=== PATIENT | female | born 1940 | race Caucasian/White ===

== ENCOUNTER → 2017-02-24 | Outpatient (CLI) | payer OTHER, BC ==
[~2017-02-24] MED LIST: ACET1TAB84 PO; ASPEC81 PO; CALCTAB65 PO; CEFD300C2 PO; CHOL1000 PO; CLON0.5T3 PO; COEN100C7 PO; COEN10CA4 PO; CPR500 PO; DIPH25CA5 PO; DOCU100C PO; FRRG PO; HYDR-4330 PO; HYDR-5688 PO; MELA1CAP9 PO; MRLP17 PO; MULT-513 PO; MULT-890 PO; ONDA4TAB65 PO; ONDA8TAB6 PO; OXYSR10 PO; PANT40TA2 PO; PARO30TA3 PO; PRVC/40 PO; RIZA10TA18 PO; ULT50X PO; VERA180T PO; VITAMIN B2 PO; VTMD PO; [UNRECOGNIZED DRUG - OTHER] PO
--- NOTE | 2017-02-24 17:47 | DIAGNOSTIC IMAGING REPORT ---
L-SPINE MIN 4 VIEWS ROUTINE CLINICAL HISTORY: Lumbar spine pain COMPARISON STUDY: No previous studies for comparison. FINDINGS: There are postsurgical changes of a total right hip arthroplasty. The acetabular screw protrudes into the pelvic soft tissues. There is moderate fecal retention. There are surgical clips the right upper quadrant consistent with a prior cholecystectomy. There is a minimal grade 1 spondylolisthesis of L4 and L5. There is a mild to moderate superior endplate L1 compression deformity which appears subacute. IMPRESSION: 1. Superior endplate L1 compression fracture which appears subacute. 2. No acute fractures or traumatic subluxations identified 3. Minimal grade 1 spondylolisthesis of L4 on L5 4. Fecal retention Electronically signed by: Ahmet Jones M.D. 02/24/2017 5:46 PM Dictated Date/Time: 02/24/2017 5:44 PM
--- NOTE | 2017-02-24 17:49 | DIAGNOSTIC IMAGING REPORT ---
THORACIC SPINE 3 VIEWS ROUTINE CLINICAL HISTORY: THORACIC BACK PAIN COMPARISON STUDY: No previous studies for comparison. FINDINGS: There is a mild spinal curvature convex to the left. No acute fractures or subluxations are visualized. There is a superior endplate L1 compression deformity which appears subacute. The paraspinal line is not significantly displaced IMPRESSION: Subacute superior endplate L1 compression fracture. Electronically signed by: Ahmet Jones M.D. 02/24/2017 5:47 PM Dictated Date/Time: 02/24/2017 5:47 PM
== END | disposition home or self-care (01) ==
LOC: C.RAD 16:55
PROVIDERS: ATTEND Nurse Practitioner
DX: M54.6 Pain in thoracic spine (principal); S32.010A Wedge compression fracture of first lumbar vertebra, initial encounter for closed fracture; X58.XXXA Exposure to other specified factors, initial encounter; M43.16 Spondylolisthesis, lumbar region; K59.00 Constipation, unspecified

== ENCOUNTER 2017-02-28 22:06 | Emergency (ER) | payer OTHER, BC ==
[~2017-02-28] VITALS: Ht 162.6 cm; Wt 77.9 kg
[~2017-02-28 22:06] MED LIST changes: -ASPEC81 PO; -CEFD300C2 PO; -COEN100C7 PO; -CPR500 PO; -FRRG PO; -HYDR-4330 PO; -HYDR-5688 PO; -MRLP17 PO; -MULT-890 PO; -ONDA4TAB65 PO; -ONDA8TAB6 PO; -OXYSR10 PO; -ULT50X PO; -VTMD PO
[2017-02-28 22:10] VITALS: TEMP 36.4; Ht 162.6 cm; Wt 77.9 kg
[2017-02-28] MEDS ORDERED: ONDANSETRON INJ 2 MG/ML 2 ML VIAL IV STA (22:39)
[2017-02-28] MEDS ORDERED: SODIUM CHLORIDE 0.9% 1000ML 1,000 ML IV STA (22:39)
[2017-02-28] MEDS ORDERED: SODIUM CHLORIDE 0.9% 1000ML 500 ML IV STA (22:39)
[2017-02-28] MEDS ORDERED: MoRPHine SULFATE 4 MG/ML 1 ML CARP\\VIAL IV PRN (22:45)
--- NOTE | 2017-02-28 22:47 | EMERGENCY ROOM VISIT NOTE ---
History Report prepared by Karthikeyan: Dontrell Manning Under the Supervision of: Dr. Augusto Cohen M.D. First contact with patient: 22:32 Chief Complaint: CONSTIPATION Stated Complaint: CONSTIPATION STOMACH ACHE History of Present Illness The patient is a 76 year old female who presents to the Emergency Room with complaints of persistent constipation beginning one week prior to arrival. She currently rates her discomfort as an 8/10 in severity. The patient associates nausea, abdominal bloating, abdominal pain for three days, intermittent shortness of breath, and diaphoresis with today's symptoms. She states she has a compression fracture in her back and she was taking Oxycodone. The patient notes her last dose of pain medication was two days ago. She states she tried suppositories, two laxatives, and stool softeners without relief. The patient denies a fever, vomiting, wearing oxygen at home, a history of lung disease, and a history of a heart attack. She notes she has experienced constipation in the past but not for this long. The patient states she has been urinating normally. Source of History: patient Onset: one week ELIGIBILITY SPECIALIST Position: other (global) Symptom Intensity: 8/10 Quality: other (constipation) Timing: other (persistent) Associated Symptoms: + SOB (resolved), + abdominal pain, + diaphoresis, + nausea, No fevers, No vomiting Note: Associated symptoms: abdominal bloating Review of Systems See HPI for pertinent positives & negatives. A total of 10 systems reviewed and were otherwise negative. Past Medical & Surgical Medical Problems: (1) Diverticulosis (2) Diverticulosis Colon (W/O Ment Of Hemorrhage) (3) Hypercholesteremia (4) Migraine Unspecified W/O Intract Mgrn W/O Status Migrainosus (5) Osteoporosis (6) Osteoporosis Nos (7) UTI (urinary tract infection) Surgical Problems: (1) History of femur fracture (2) S/P hysterectomy Family History Cancer Social History Smoking Status: Never Smoker Marital Status: Housing Status: lives with significant other Occupation Status: retired Current/Historical Medications Scheduled Calcium Carbonate-Vitamin D (Calcium 500 + D), 1 TAB PO BID Cefdinir (Omnicef), 300 MG PO Q12H Cholecalciferol (Vitamin D3), 1 TAB PO QAM Coenzyme Q10 (Ubidecarenone) (Coq10), Unknown Dose PO DAILY Diphenhydramine Hcl (Benadryl), 50 MG PO HS Melatonin (Melatonin), 10 MG PO HS Multivitamins/Minerals (Mvi With Minerals), 1 TAB PO QAM Pantoprazole (Pantoprazole Sodium), 40 MG PO QAM Paroxetine HCl (Paroxetine), 2 TAB PO Q2D Paroxetine HCl (Paroxetine), 1.5 TAB PO Q2D Pravastatin Sod (Pravastatin Sodium), 40 MG PO HS Rizatriptan Benzoate (Maxalt), 10 MG PO PRN Verapamil Hcl (Calan Sr Ext Rel), 180 MG PO QAM [Restless Leg Herb], 1 TAB PO HS [Vitamin B2], 100 MG PO QAM Scheduled PRN Acetaminophen (Tylenol Arthritis Ext Rel), 650 MG PO Q8H PRN for Pain Clonazepam (Klonopin), 0.5 MG PO DAILY PRN for Anxiety Docusate Sodium (Stool Softener), 100 MG PO DAILY PRN for CONSTIPATION Allergies Coded Allergies: No Known Allergies (Unverified , 03/01/17) Physical Exam Vital Signs Date Time Temp Pulse Resp B/P Pulse Ox O2 Delivery O2 Flow Rate FiO2 03/01/17 01:42 94 18 145/68 94 Room Air 03/01/17 00:41 99 18 162/75 95 Room Air 02/28/17 23:51 96 21 138/77 95 Room Air 02/28/17 22:10 36.4 144 20 146/92 96 Room Air Physical Exam GENERAL: Patient is in no acute distress. HEENT: No acute trauma, normocephalic atraumatic, mucous membranes moist, no nasal congestion, no scleral icterus. NECK: No stridor, no adenopathy, no meningismus, trachea is midline. LUNGS: Increased respiratory rate. Clear to auscultation bilaterally, no wheeze , no rhonchi, breath sounds equal. HEART: Tachycardic with a regular rhythm, no murmurs. ABDOMEN: Diffusely mildly tender, some distension noted. Soft, bowel sounds positive, no hernias, no peritonitis. EXTREMITIES: No cyanosis or edema, full range of motion of all the joints without pain or difficulty, no signs for acute trauma. NEUROLOGIC: Oriented x 3, no acute motor or sensory deficits, no focal weakness. SKIN: Mildly sweaty. No rash, no jaundice. Rectal: Brown stool, no significant constipation. Medical Decision & Procedures ER Provider Diagnostic Interpretation: X ray results and stated below per my interpretation and radiologist interpretation. Other radiology results and stated below per my review and radiologist interpretation: SINGLE VIEW CHEST CLINICAL HISTORY: Generalized abdominal pain. FINDINGS: An AP, portable, semierect chest radiograph is compared to study dated 09/15/2016. The examination is degraded by portable technique, apical lordotic positioning, and patient rotation. The heart is mildly enlarged and there is atherosclerotic calcification of the thoracic aorta. The pulmonary vasculature is noncongested. Chronic interstitial thickening is similar to previous. No airspace consolidation, large pleural effusion, or pneumothorax is seen. The skeletal structures are osteopenic. The bony thorax is grossly intact. Cholecystectomy clips are seen in the right upper quadrant. IMPRESSION: Mild cardiac enlargement with no acute cardiopulmonary abnormality. Electronically signed by: Augusto Wasserman M.D. 02/28/2017 11:[address] ABDOMEN & PELVIS: Moderate stool throughout the colon with air-fluid levels in the ascending and transverse colon. Findings may indicate stasis/constipation or diarrheal state. Correlate clinically. No bowel obstruction, significant bowel wall thickening or free air. No evidence of acute diverticulitis, as clinically queried. L1 superior endplate compression fracture of indeterminate age with retropulsion measuring approximately 4-5 mm. Correlate clinically. Cholecystectomy. Normal appendix. Small hiatal hernia. Radiologist: Crystal Ramos MD Study ready at 00:41 and initial results transmitted at 01:08. Laboratory Results 02/28/17 23:00 Red Blood Count 4.46, Mean Corpuscular Volume 92.2, Mean Corpuscular Hemoglobin 32.1, Mean Corpuscular Hemoglobin Concent 34.8, Mean Platelet Volume 10.6, Neutrophils (%) (Auto) 69.2, Lymphocytes (%) (Auto) 22.0, Monocytes (%) (Auto) 7.8, Eosinophils (%) (Auto) 0.5, Basophils (%) (Auto) 0.2, Neutrophils # (Auto) 8.57, Lymphocytes # (Auto) 2.72, Monocytes # (Auto) 0.96, Eosinophils # (Auto) 0.06, Basophils # (Auto) 0.02 02/28/17 23:00 Test 02/28/17 23:00 02/28/17 23:50 White Blood Count 12.37 K/uL (4.8-10.8) Red Blood Count 4.46 M/uL (4.2-5.4) Hemoglobin 14.3 g/dL (12.0-16.0) Hematocrit 41.1 % (37-47) Mean Corpuscular Volume 92.2 fL (80-100) Mean Corpuscular Hemoglobin 32.1 pg (25-34) Mean Corpuscular Hemoglobin Concent 34.8 g/dl (32-36) Platelet Count 302 K/uL (130-400) Mean Platelet Volume 10.6 fL (7.4-10.4) Neutrophils (%) (Auto) 69.2 % Lymphocytes (%) (Auto) 22.0 % Monocytes (%) (Auto) 7.8 % Eosinophils (%) (Auto) 0.5 % Basophils (%) (Auto) 0.2 % Neutrophils # (Auto) 8.57 K/uL (1.4-6.5) Lymphocytes # (Auto) 2.72 K/uL (1.2-3.4) Monocytes # (Auto) 0.96 K/uL (0.11-0.59) Eosinophils # (Auto) 0.06 K/uL (0-0.5) Basophils # (Auto) 0.02 K/uL (0-0.2) RDW Standard Deviation 48.7 fL (36.4-46.3) RDW Coefficient of Variation 14.4 % (11.5-14.5) Immature Granulocyte % (Auto) 0.3 % Immature Granulocyte # (Auto) 0.04 K/uL (0.00-0.02) Prothrombin Time 10.8 SECONDS (9.0-12.0) Prothromb Time International Ratio 1.0 (0.9-1.1) Activated Partial Thromboplast Time 24.4 SECONDS (21.0-31.0) Partial Thromboplastin Ratio 0.9 Anion Gap 16.0 mmol/L (3-11) Est Creatinine Clear Calc Drug Dose 48.3 ml/min Estimated GFR () 64.8 Estimated GFR (Non- 55.9 BUN/Creatinine Ratio 23.0 (10-20) Calcium Level 10.0 mg/dl (8.5-10.1) Total Bilirubin 0.8 mg/dl (0.2-1) Aspartate Amino Transf (AST/SGOT) 81 U/L (15-37) Alanine Aminotransferase (ALT/SGPT) 208 U/L (12-78) Alkaline Phosphatase 162 U/L (45-117) Troponin I < 0.015 ng/ml (0-0.045) Total Protein 8.2 gm/dl (6.4-8.2) Albumin 4.0 gm/dl (3.4-5.0) Globulin 4.2 gm/dl (2.5-4.0) Albumin/Globulin Ratio 1.0 (0.9-2) Lipase 698 U/L (73-393) Urine Color DK YELLOW Urine Appearance TURBID (CLEAR) Urine pH 6.5 (4.5-7.5) Urine Specific [place] 1.027 (1.000-1.030) Urine Protein 1+ (NEG) Urine Glucose (UA) NEG (NEG) Urine Ketones 3+ (NEG) Urine Occult Blood TRACE (NEG) Urine Nitrite POS (NEG) Urine Bilirubin NEG (NEG) Urine Urobilinogen NEG (NEG) Urine Leukocyte Esterase LARGE (NEG) Urine WBC (Auto) >30 /hpf (0-5) Urine RBC (Auto) 5-10 /hpf (0-4) Urine Hyaline Casts (Auto) 1-5 /lpf (0-5) Urine Epithelial Cells (Auto) 10-20 /lpf (0-5) Urine Bacteria (Auto) 4+ (NEG) Laboratory results reviewed by me. Medications Administered Medications (Trade) Dose Ordered Sig/Paul Route Start Time Stop Time Status Last Admin Dose Admin Sodium Chloride (Nss 1000ml) 500 ml @ 999 mls/hr Q31M STAT IV 02/28/17 22:39 02/28/17 23:09 DC 02/28/17 22:39 999 MLS/HR Ondansetron HCl (Zofran Inj) 4 mg NOW STAT IV 02/28/17 22:39 02/28/17 22:43 DC 02/28/17 23:10 4 MG Morphine Sulfate 4 mg 4 mg Q30M PRN IV 02/28/17 22:45 03/14/17 22:44 02/28/17 23:10 4 MG Sodium Chloride (Nss 1000ml) 1,000 ml @ 125 mls/hr Q8H STAT IV 02/28/17 22:39 03/01/17 06:38 02/28/17 22:39 125 MLS/HR Ceftriaxone Sodium (Rocephin Inj) 1 gm NOW STAT IV 03/01/17 00:02 03/01/17 00:03 DC 03/01/17 00:50 1 GM ECG Indication: tachycardia Rate (beats per minute): 108 Rhythm: sinus tachycardia Findings: no acute ischemic change, no ectopy ED Course 2233: The patient was evaluated in room A11B. A complete history and physical exam was performed. 2239: Ordered Sodium Chloride 1,000 ml @ 125 mls/hr IV, Zofran Inj 4 mg IV, Sodium Chloride 500 ml @ 999 mls/hr IV. 2245: Ordered Morphine Sulfate 4 mg IV. 0002: Ordered Rocephin Inj 1 gm IV. 0120: Reevaluated the patient and offered for her to stay in the hospital, but she would like to go home. Discussed results and discharge instructions: She verbalized understanding and agreement. The patient is ready for discharge. Medical Decision The differential diagnoses include but are not limited to: bowel obstruction, diverticulitis, constipation, dehydration, dysrhythmia, anemia, electrolyte imbalance, UTI. There is a mild leukocytosis which could be consistent with infection or with the stress of her presentation. No concerning anemia. No significant electrolyte abnormality or kidney failure. There was some mild elevation to a few of the LFTs, likely consistent with dehydration. Lipase mildly elevated but not high enough to diagnose pancreatitis. Urinalysis does show infection. Urine culture is pending. Chest film does not show pneumonia, CHF or pneumothorax. EKG shows a sinus tachycardia, no acute ischemia. Cardiac enzyme testing times one is not consistent with acute cardiac injury. Abdominal and pelvis CT shows constipation, no evidence for abscess or for diverticulitis. No bowel obstruction. The patient received IV saline, IV morphine and IV Zofran. She was markedly improved after this medication. The heart rate decreased to a normal level. Her breathing was easy, she was comfortable. Patient received IV ceftriaxone for the UTI. I talked to the patient about admission versus discharge. She does not want to stay in the hospital. She is going to be discharged on Omnicef twice a day for 10 days. Hydration and rest were encouraged. The patient was to start Miralax for a bowel clean out. She was encouraged to see her doctor in the office in a few days and she has agreed to return if not improving. Impression Primary Impression: Dehydration Additional Impressions: UTI (urinary tract infection) Constipation Scribe Attestation The scribe's documentation has been prepared under my direction and personally reviewed by me in its entirety. I confirm that the note above accurately reflects all work, treatment, procedures, and medical decision making performed by me. Departure Information Dispostion Home / Self-Care Prescriptions Cefdinir (OMNICEF) 300 Mg Cap 300 MG PO Q12H for 10 Days, #20 CAP Prov: Augusto Cohen M.D. 03/01/17 Referrals Jimbo Lerner M.D. (PCP) Forms HOME CARE DOCUMENTATION FORM, IMPORTANT VISIT INFORMATION Patient Instructions My [facility] Additional Instructions stay very well hydrated omnicef 2x per day for 10 days miralax 1 heaping capfull in 8 oz of liquid over 1 hour--repeat dosing every 1- 2 hours until start having bowel movements may continue the suppositories to help bowel movements see cristine md in a few days for a recheck return if worsening as we discussed--we did offer you a hospital stay this evening Problem Qualifiers
--- NOTE | 2017-02-28 23:05 | DIAGNOSTIC IMAGING REPORT ---
SINGLE VIEW CHEST CLINICAL HISTORY: Generalized abdominal pain. FINDINGS: An AP, portable, semierect chest radiograph is compared to study dated 09/15/2016. The examination is degraded by portable technique, apical lordotic positioning, and patient rotation. The heart is mildly enlarged and there is atherosclerotic calcification of the thoracic aorta. The pulmonary vasculature is noncongested. Chronic interstitial thickening is similar to previous. No airspace consolidation, large pleural effusion, or pneumothorax is seen. The skeletal structures are osteopenic. The bony thorax is grossly intact. Cholecystectomy clips are seen in the right upper quadrant. IMPRESSION: Mild cardiac enlargement with no acute cardiopulmonary abnormality. Electronically signed by: Augusto Wasserman M.D. 02/28/2017 11:04 PM Dictated Date/Time: 02/28/2017 11:03 PM
[2017-02-28 23:26] LABS: BASO % 0.2 %; BASO ABS # 0.02 K/uL (0-0.2); COMPLETE YES; EOS % 0.5 %; HEMATOCRIT 41.1 % (37-47); IG% 0.3 %; LYMPH ABS # 2.72 K/uL (1.2-3.4); MEAN CELL VOLUME 92.2 fL (80-100); MEAN CORPUSCULAR HEMOGLOBIN 32.1 pg (25-34); MEAN CORPUSCULAR HGB CONC 34.8 g/dl (32-36); MEAN PLATELET VOLUME 10.6 fL (7.4-10.4); MONO % 7.8 %; NEUT % 69.2 %; PLATELET COUNT 302 K/uL (130-400); RED BLOOD COUNT 4.46 M/uL (4.2-5.4); WHITE BLOOD COUNT 12.37 K/uL (4.8-10.8)
[2017-02-28 23:47] LABS: PARTIAL THROMBOPLASTIN RATIO 0.9; PROTHROMBIN TIME (PATIENT) 10.8 SECONDS (9.0-12.0)
[2017-03-01] MEDS ORDERED: OPTIRAY 320 IV PRN
[2017-03-01] MEDS ORDERED: CEFTRIAXONE SOD INJ 1 GM ADDVIAL IV STA (00:02)
[2017-03-01 00:07] LABS: URINE APPEARANCE TURBID (CLEAR); URINE COLOR DK YELLOW; URINE NITRITE POS (NEG); URINE PH 6.5 (4.5-7.5); URINE SPECIFIC GRAVITY 1.027 (1.000-1.030); UROBILINOGEN NEG (NEG); ZZUR CULT IF INDIC CLEAN CATCH YES
[2017-03-01 00:07] LABS: ALT/SGPT 208 U/L (12-78); AST/SGOT 81 U/L (15-37); BLOOD UREA NITROGEN 22 mg/dl (7-18); CARBON DIOXIDE 21 mmol/L (21-32); CHLORIDE 106 mmol/L (98-107); CREATININE 0.97 mg/dl (0.60-1.20); GLUCOSE 126 mg/dl (70-99); POTASSIUM 3.5 mmol/L (3.5-5.1); SODIUM 143 mmol/L (136-145)
[2017-03-01 00:12] LABS: ALKALINE PHOSPHATASE 162 U/L (45-117)
[2017-03-01 00:22] LABS: MANUAL MICROSCOPIC REQUIRED? NO; REVIEW REQ? NO; URINE BILIRUBIN NEG (NEG)
[2017-03-01] MEDS ORDERED: COEN100C7 PO ×2 (00:55)
[2017-03-01] MEDS ORDERED: CEFD300C2 PO ×2 (01:29)
[2017-03-01 01:42] VITALS: BP 145/68; PULSE 94; O2SAT 94
--- NOTE | 2017-03-01 06:53 | DIAGNOSTIC IMAGING REPORT ---
ABDOMEN AND PELVIS CT WITH IV CONTRAST CT DOSE: 582.79 mGy.cm HISTORY: Pain. Nausea. ABD PAIN, POSS diver tic TECHNIQUE: Multiaxial CT images of the abdomen and pelvis were performed following the use of intravenous contrast. COMPARISON STUDY: None. FINDINGS: The lung bases are clear. Liver spleen and pancreas are unremarkable. Prior cholecystectomy. Kidneys negative for hydronephrosis. Mild increase in colonic fecal material. Prior right hip arthroplasty. Bladder is midline. No free fluid within the pelvic cul-de-sac. L1 compression deformity which has been described previously and is considered nonacute. IMPRESSION: Moderate increase in fecal load throughout the colon. 2. Prior cholecystectomy. 3. Mild old L1 compression deformity. Electronically signed by: Eleazar Lal M.D. 03/01/2017 6:52 AM Dictated Date/Time: 03/01/2017 6:50 AM
[2017-03-02] MEDS ORDERED: ULT50X PO ×2 (09:07)
[2017-03-02] MEDS ORDERED: MRLP17 PO ×2 (09:07)
[2017-03-02] MEDS ORDERED: VTMD PO ×2 (09:07)
[2017-03-02] MEDS ORDERED: ONDA4TAB65 PO ×2 (13:56)
--- NOTE | 2017-03-03 11:15 | Pharmacy Progress Note ---
ED Pharmacist Culture FollowUp Date of Service: March 03, 2017. Patient's urine cx from 02/28/17 is growing e coli (>100,000CFU/mL). She was seen that day for constipation x 1 wk, and increasing abd pain/bloating over the prior 3 days. She was dx w/ UTI/dehydration/constipation and asked to stay for further evaluation but the patient declined admission. She was discharged on Cefdinir 300mg BID x 10 days - and this should be effective based upon sensitivities. She returned to the ER on 03/01 for RUQ pain, continued constipation and anxiety. She was ultimately hospitalized for abd pain and severe constipation secondary to pain medications. Cefdinir was continued during hospitalization for the UTI. She was discharged on 03/02 after she had large BM. Cefdinir was continued on discharge. No further action required.
[2017-05-12] MEDS ORDERED: HYDR-4330 PO (12:33)
== END 2017-03-01 01:43 | disposition home or self-care (01) ==
LOC: C.EDB 22:07 → C.EDA 03-01 01:43
DX: E86.0 Dehydration (principal); N39.0 Urinary tract infection, site not specified; K59.00 Constipation, unspecified; E78.00 Pure hypercholesterolemia, unspecified; M81.0 Age-related osteoporosis without current pathological fracture; Z87.440 Personal history of urinary (tract) infections; Z79.899 Other long term (current) drug therapy

== ENCOUNTER 2017-03-01 15:45 | Observation (INO) | payer OTHER, BC ==
[~2017-03-01] VITALS: Ht 162.6 cm; Wt 77.7 kg
[~2017-03-01 15:45] MED LIST changes: +CEFD300C2 PO; +COEN100C7 PO
[2017-03-01] MEDS ORDERED: SODIUM CHLORIDE 0.9% 1000ML 1,000 ML IV STA (16:15)
[2017-03-01] MEDS ORDERED: SODIUM CHLORIDE 0.9% 1000ML 500 ML IV STA (16:15)
[2017-03-01] MEDS ORDERED: LORAZEPAM 1 MG TAB SL STA (16:15)
[2017-03-01 16:41] LABS: BASO % 0.2 %; BASO ABS # 0.02 K/uL (0-0.2); COMPLETE YES; EOS % 0.5 %; HEMATOCRIT 38.8 % (37-47); IG% 0.3 %; LYMPH % 20.6 %; LYMPH ABS # 2.11 K/uL (1.2-3.4); MEAN CELL VOLUME 91.7 fL (80-100); MEAN CORPUSCULAR HEMOGLOBIN 31.4 pg (25-34); MEAN CORPUSCULAR HGB CONC 34.3 g/dl (32-36); MEAN PLATELET VOLUME 10.1 fL (7.4-10.4); MONO % 8.7 %; NEUT % 69.7 %; PLATELET COUNT 264 K/uL (130-400); RED BLOOD COUNT 4.23 M/uL (4.2-5.4); WHITE BLOOD COUNT 10.23 K/uL (4.8-10.8)
--- NOTE | 2017-03-01 16:59 | DIAGNOSTIC IMAGING REPORT ---
PA CHEST WITH ABDOMINAL SERIES CLINICAL HISTORY: Generalized abdominal pain. FINDINGS: A PA chest radiograph is compared to study dated 02/28/2017. The examination is degraded by patient rotation. The cardiomediastinal silhouette is unremarkable. Chronic interstitial thickening is unchanged. The lungs and pleural spaces are clear. No pneumothorax is seen. The skeletal structures are osteopenic. Mild degenerative changes noted throughout the thoracic spine. Supine and erect abdominal radiographs are correlated with abdominal CT dated 03/01/2017. There is a nonobstructed abdominal bowel gas pattern. No evidence of intraperitoneal free air is seen. Cholecystectomy clips are identified in the right upper quadrant. There is moderate to severe constipation. No abnormal abdominal calcifications are identified. There is mild lumbosacral spondylosis. A right hip arthroplasty is in place. IMPRESSION: 1. No active disease in the chest. 2. Moderate to severe constipation. Electronically signed by: Augusto Wasserman M.D. 03/01/2017 4:57 PM Dictated Date/Time: 03/01/2017 4:55 PM
[2017-03-01 17:12] LABS: ALKALINE PHOSPHATASE 172 U/L (45-117); ALT/SGPT 181 U/L (12-78); AST/SGOT 74 U/L (15-37); BLOOD UREA NITROGEN 15 mg/dl (7-18); BUN/CREATININE RATIO 20.4 (10-20); CALCIUM 9.7 mg/dl (8.5-10.1); CARBON DIOXIDE 22 mmol/L (21-32); CHLORIDE 108 mmol/L (98-107); CREATININE 0.75 mg/dl (0.60-1.20); GLUCOSE 117 mg/dl (70-99); POTASSIUM 3.8 mmol/L (3.5-5.1); SODIUM 141 mmol/L (136-145)
[2017-03-01 19:00] VITALS: O2SAT 99
[2017-03-01] MEDS ORDERED: NON-FORMULARY MEDICATION (Acetaminophen (Tylenol Arthritis Ext Rel) 650 MG) PO PRN (19:15)
[2017-03-01] MEDS ORDERED: COENZYME Q10 10 MG PO PRN (19:15)
[2017-03-01] MEDS ORDERED: RIZATRIPTAN BENZOATE 10 MG TAB PO PRN (19:15)
[2017-03-01] MEDS ORDERED: CLONAZEPAM 0.5 MG TAB PO PRN (19:15)
[2017-03-01] MEDS ORDERED: DOCUSATE SODIUM 100 MG CAP PO PRN (19:15)
[2017-03-01] MEDS ORDERED: POLYETHYLENE (MIRALAX) 17 GM PACK PO PRN (19:30)
[2017-03-01] MEDS ORDERED: SOD PHOSPHATE/SOD BIPHOSPHATE ENEMA 132 ML BTL PR PRN (19:30)
[2017-03-01] MEDS ORDERED: TRAMADOL HCL 50 MG TAB PO PRN (19:45)
[2017-03-01 20:00] VITALS: BP 148/72; PULSE 100; TEMP 36.8; Ht 162.6 cm; Wt 77.7 kg
[2017-03-01] MEDS ORDERED: IV FLUIDS COMPLETED PRN (20:45)
[2017-03-01] MEDS ORDERED: PATIENT'S HEIGHT AND/OR WEIGHT NEEDED SCH (20:45)
--- NOTE | 2017-03-01 20:50 | History and Physical ---
History & Physical Date & Time of Service: March 01, 2017 at 20:51 Chief Complaint: Abdominal Pain Primary Care Physician: Jimbo Lerner M.D. Past Medical/Surgical History Medical Problems: (1) Diverticulosis Status: Chronic (2) Hypercholesteremia Status: Chronic (3) Osteoporosis Status: Chronic (4) UTI (urinary tract infection) Status: Resolved Surgical Problems: (1) History of femur fracture Status: Resolved (2) S/P hysterectomy Status: Resolved Family History Cancer Social History Smoking Status: Never Smoker Marital Status: Occupational Status: retired Multi-Drug Resistant Organisms History of MDRO: No Allergies Coded Allergies: No Known Allergies (Unverified , 03/01/17) Home Medications Scheduled Calcium Carbonate-Vitamin D (Calcium 500 + D), 1 TAB PO BID Cefdinir (Omnicef), 300 MG PO Q12H Cholecalciferol (Vitamin D3), 1 TAB PO QAM Diphenhydramine Hcl (Benadryl), 50 MG PO HS Melatonin (Melatonin), 10 MG PO HS Multivitamins/Minerals (Mvi With Minerals), 1 TAB PO QAM Pantoprazole (Pantoprazole Sodium), 40 MG PO QAM Paroxetine HCl (Paroxetine), 2 TAB PO Q2D Paroxetine HCl (Paroxetine), 1.5 TAB PO Q2D Pravastatin Sod (Pravastatin Sodium), 40 MG PO HS Rizatriptan Benzoate (Maxalt), 10 MG PO PRN Verapamil Hcl (Calan Sr Ext Rel), 180 MG PO QAM [Restless Leg Herb], 1 TAB PO HS [Vitamin B2], 100 MG PO QAM Scheduled PRN Acetaminophen (Tylenol Arthritis Ext Rel), 650 MG PO Q8H PRN for Pain Clonazepam (Klonopin), 0.5 MG PO DAILY PRN for Anxiety Coenzyme Q10 (Ubidecarenone) (Coq10), 10 MG PO DAILY PRN for PRN Docusate Sodium (Stool Softener), 100 MG PO DAILY PRN for CONSTIPATION Physical Exam Vital Signs Date Time Temp Pulse Resp B/P Pulse Ox O2 Delivery O2 Flow Rate FiO2 03/01/17 19:54 98 150/92 03/01/17 19:00 101 16 150/82 99 Room Air 03/01/17 18:20 106 16 161/98 93 Room Air 03/01/17 16:45 66 142/87 99 Room Air 03/01/17 16:32 89 03/01/17 15:54 36.5 98 20 152/81 95 Room Air Diagnostics Laboratory Results Results Past 24 Hours Test 03/01/17 16:30 03/01/17 17:30 Range/Units White Blood Count 10.23 4.8-10.8 K/uL Red Blood Count 4.23 4.2-5.4 M/uL Hemoglobin 13.3 12.0-16.0 g/dL Hematocrit 38.8 37-47 % Mean Corpuscular Volume 91.7 80-100 fL Mean Corpuscular Hemoglobin 31.4 25-34 pg Mean Corpuscular Hemoglobin Concent 34.3 32-36 g/dl Platelet Count 264 130-400 K/uL Mean Platelet Volume 10.1 7.4-10.4 fL Neutrophils (%) (Auto) 69.7 % Lymphocytes (%) (Auto) 20.6 % Monocytes (%) (Auto) 8.7 % Eosinophils (%) (Auto) 0.5 % Basophils (%) (Auto) 0.2 % Neutrophils # (Auto) 7.13 1.4-6.5 K/uL Lymphocytes # (Auto) 2.11 1.2-3.4 K/uL Monocytes # (Auto) 0.89 0.11-0.59 K/uL Eosinophils # (Auto) 0.05 0-0.5 K/uL Basophils # (Auto) 0.02 0-0.2 K/uL RDW Standard Deviation 48.2 36.4-46.3 fL RDW Coefficient of Variation 14.4 11.5-14.5 % Immature Granulocyte % (Auto) 0.3 % Immature Granulocyte # (Auto) 0.03 0.00-0.02 K/uL Sodium Level 141 136-145 mmol/L Potassium Level 3.8 3.5-5.1 mmol/L Chloride Level 108 98-107 mmol/L Carbon Dioxide Level 22 21-32 mmol/L Anion Gap 11.0 3-11 mmol/L Blood Urea Nitrogen 15 7-18 mg/dl Creatinine 0.75 0.60-1.20 mg/dl Estimated GFR () 88.5 Estimated GFR (Non- 76.3 BUN/Creatinine Ratio 20.4 10-20 Random Glucose 117 70-99 mg/dl Calcium Level 9.7 8.5-10.1 mg/dl Total Bilirubin 0.7 0.2-1 mg/dl Direct Bilirubin 0.2 0-0.2 mg/dl Aspartate Amino Transf (AST/SGOT) 74 15-37 U/L Alanine Aminotransferase (ALT/SGPT) 181 12-78 U/L Alkaline Phosphatase 172 45-117 U/L Total Protein 7.7 6.4-8.2 gm/dl Albumin 3.6 3.4-5.0 gm/dl Lipase 372 73-393 U/L Chemistry Specimen Hemolysis Impression Assessment and Plan admit #[id number] VTE Prophylaxis VTE Risk Assessment Done? Y/N: Yes Risk Level: Moderate
[2017-03-01] MEDS: POLYETHYLENE (MIRALAX) 17 GM PACK PO SCH ×4 (20:57→21:43)
[2017-03-01] MEDS: CALCIUM 600MG + VIT D 400 IU TAB PO SCH (20:59)
[2017-03-01] MEDS: CALCITONIN SALMON NA 200 IU/AC 3.7 ML BTL SCH (20:59)
[2017-03-01] MEDS ORDERED: [UNRECOGNIZED DRUG - OTHER] PO SCH (21:00)
[2017-03-01] MEDS ORDERED: LIDODERM (LIDOCAINE) PATCH 5% TD ONE (21:00)
[2017-03-01] MEDS ORDERED: PRAVASTATIN SOD 40 MG TAB PO SCH (21:00)
[2017-03-01] MEDS ORDERED: NON-FORMULARY MEDICATION (Melatonin 10 MG) PO SCH (21:00)
[2017-03-01] MEDS: CEFDINIR 300 MG CAP PO SCH (21:18)
--- NOTE | 2017-03-01 21:32 | HISTORY & PHYSICAL EXAMINATION ---
DATE OF ADMISSION: 03/01/2017 CHIEF COMPLAINT: Abdominal pain. HISTORY OF PRESENT ILLNESS: The patient is a very pleasant 76-year-old female actually seen here in the ER last night. She had abdominal pain and was deemed most likely due to constipation. She was treated. She was a little dehydrated, this was treated as well. She was discharged to home. Unfortunately, she did not go on to have much of adequate bowel movements. She has had ongoing abdominal pain and distention. Because of this and back pain from her compression fracture (see below), she is also feeling more and more anxious and so she came to the ER for further evaluation. Because of predominantly the abdominal pain with refractory constipation as well as the anxiety with a degree of panic attacks as well as the back pain, we were asked to see her for further evaluation. Her compression fracture was noted to be a subacute endplate L1 compression fracture, showing up on x-ray on 02/24/2017, and she notes it was somewhere around that time or maybe slightly before that that her back pain started. She was being treated symptomatically with pain meds, they were helping some with the back pain, but unfortunately led to constipation. REVIEW OF SYSTEMS: Otherwise negative except for as above. PAST MEDICAL HISTORY: Includes osteoporosis with spinal compression fractures, prior hip fracture, GERD, hyperlipidemia, hyperglycemia but with an A1c most recently of 5.6, migraines, anxiety with intermittent panic attacks, vitamin D deficiency, urge incontinence. MEDICATIONS: Calcium 600+D b.i.d., Klonopin 0.5 mg q. 12 hours p.r.n. anxiety, CoQ10 daily, Benadryl 25 mg to 50 mg at bedtime, multivitamin daily, oxycodone 5/325 q. 4 hours p.r.n. pain, Protonix 40 mg daily, Paxil 30 mg tablets, she alternates 60 and 45 mg every other day, Pravachol 40 mg at bedtime, melatonin 10 mg at bedtime, Maxalt 10 mg p.r.n. migraine, tramadol 50 mg q. 6 p.r.n. pain, Tylenol Arthritis 650 two tabs b.i.d., verapamil extended-release 180 mg daily, vitamin D 1000 International Units daily. SURGICAL HISTORY: Includes breast surgery, cholecystectomy, abdominal hysterectomy and total hip replacement. FAMILY HISTORY: Includes a brother with bladder cancer, colon cancer in her dad. SOCIAL HISTORY: No tobacco, no alcohol, no drugs. She is retired. PHYSICAL EXAMINATION: VITAL SIGNS: Temp 36.5, pulse 98, respiratory rate 20, blood pressure 152/81, 95% on room air. GENERAL: She is awake, alert, oriented x3, pleasant, appears a little uncomfortable but otherwise beyond being fatigued, no acute distress. HEENT: Normocephalic, atraumatic. Mucous membranes are moist. CARDIOVASCULAR: Regular without rubs, murmurs or gallops. LUNGS: Clear to auscultation bilaterally, no rales, rhonchi or wheezes, with good effort. ABDOMEN: Soft, moderately distended, maybe mild tenderness, but absolutely no focal tenderness. No guarding, rebound, rigidity. No masses or organomegaly. EXTREMITIES: Without cyanosis or clubbing. Maybe trace edema. No calf tenderness. SKIN: Shows no rashes, no pallor or icterus. NEUROLOGIC: She has strabismus that appears to be chronic. No other cranial nerve deficits. Gross motor and sensory are equal and intact. MUSCULOSKELETAL: Yields no gross lesions. MENTAL STATUS: Good recent and remote recall. Normal mood and affect. Good judgment and insight. LABORATORY AND DIAGNOSTICS: CBC shows a white count of 10.23, hemoglobin 13.3, platelets 264. Complete metabolic panel with sodium 141, potassium 3.8, chloride 108, CO2 of 22, BUN 15, creatinine 0.75, calcium 9.7, glucose 117, total bili 0.7 with a direct of 0.2, AST 74, ALT 181, alkaline phosphatase 172. These are new compared to about a month ago. Total protein 7.7, albumin 3.6, lipase 372. CT abdomen and pelvis last night showed copious amounts of stool. PA chest with abdominal series shows no active disease in the chest, moderate to severe constipation. Of note, her common bile duct did not stand out as distended on last night's CT. ASSESSMENT AND PLAN: 1. Abdominal pain. This appears to be due to constipation. I discussed this with the patient extensively. She agrees the constipation is probably because of the pain meds. We discussed different approaches and we will try to use stack doses of MiraLax in succession. If this fails, we will be able to proceed then with an enema. Once she is moving her bowels well, would continue the MiraLax to effect a bowel movement daily and obviously we will be trying to work on more multimodal means for pain control. 2. Osteoporosis with L1 compression fracture. We will still utilize systemic pain meds as needed, but to try to minimize those, we will use Miacalcin nasal spray given that especially acutely it can help with fracture pain and we will put a lidocaine patch over the L1 area to try to reduce pain there. 3. Osteoporosis with vitamin D deficiency. Replace her D a bit more aggressively with 50,000 units of ergocalciferol weekly and additional use of vitamin D3 daily. Otherwise, outpatient management as far as utility of bisphosphonates. 4. Transaminitis. This is probably medication side effect either from her pain meds, possibly from the antibiotic she was started on in the ER for possible urinary tract infection, or both. Either way, certainly things do not look markedly elevated. Would simply follow serial labs, especially after she has been off these many pain meds. 5. Anxiety with panic attacks. Certainly, the anxiety appears to be provoked right now because of the abdominal pain and back pain. Continue her Paxil. Continue her benzodiazepines and her regular low dosing and follow. 6. Hyperlipidemia. Continue her Pravachol. Certainly if the LFTs fail to normalize, this may need to be held as well, but this is unlikely to be the case. 7. Deep venous thrombosis prophylaxis, Lovenox. 8. Questionable urinary tract infection. She was started on Ceftin by the ER. We will await the final culture results from the urine culture done on 02/28/2017 as part of that ER visit, and depending on growth, can either streamline or discontinue antibiotic therapy as appropriate.
[2017-03-01] MEDS ORDERED: BISACODYL 10 MG SUPP PR STA (22:25)
[2017-03-01] MEDS ORDERED: NURSING VERBAL MED ORDER ONE (22:30)
[2017-03-01] MEDS: ONDANSETRON INJ 2 MG/ML 2 ML VIAL IV PRN (23:08)
[2017-03-01 23:50] VITALS: BP 150/78; PULSE 101; TEMP 36.8; O2SAT 96
--- NOTE | 2017-03-02 00:34 | EMERGENCY ROOM VISIT NOTE ---
History Report prepared by Karthikeyan: Shannon Medina Under the Supervision of: Dr. Daniel Tirado M.D. First contact with patient: 16:02 Chief Complaint: ANXIETY Stated Complaint: ANXIETY, NAUSEA History of Present Illness The patient is a 76 year old female who presents to the Emergency Room with complaints of an episode of anxiety starting yesterday. She reports that she was in [facility] for a hip fracture that put her in [facility] for a while. She reports that while there, this anxiety was present and they prescribed her Xanax. The patient states she was in the ED yesterday for constipation from her Oxycodone for her multiple compression fractures. The patient states she was also diagnosed with a bladder infection yesterday as well. She states that she felt that the anxiety wasn't as bad yesterday and worsened today. The patient notes that she took a Xanax three hours ago with no relief. She also states that her back pain has increased since yesterday. She rates her back pain as a 9/10 in severity and her abdominal pain as an 8/10. The patient also complains of nausea. She notes that she has not had a bowel movement for a week. Pt denies LOC, headache, fevers, chills, diaphoresis, visual changes, neck pain, chest pain, breathing difficulties, vomiting, melena , hematochezia, numbness, weakness, lymphadenopathy, rash, or other complaints. Source of History: patient Onset: yesterday Position: other (global) Symptom Intensity: 8/10 Quality: other (global) Timing: other (episode) Associated Symptoms: + abdominal pain, + nausea, + urinary symptoms Note: The patient complains of constipation. Review of Systems See HPI for pertinent positives and negatives. A total of ten systems were reviewed and were otherwise negative. Past Medical & Surgical Medical Problems: (1) Abdominal pain (2) Diverticulosis (3) Diverticulosis Colon (W/O Ment Of Hemorrhage) (4) Hypercholesteremia (5) Migraine Unspecified W/O Intract Mgrn W/O Status Migrainosus (6) Osteoporosis (7) Osteoporosis Nos (8) UTI (urinary tract infection) Surgical Problems: (1) History of femur fracture (2) S/P hysterectomy Family History Cancer Social History Smoking Status: Never Smoker Marital Status: Housing Status: lives with significant other Occupation Status: retired Current/Historical Medications Scheduled Calcium Carbonate-Vitamin D (Calcium 500 + D), 1 TAB PO BID Cefdinir (Omnicef), 300 MG PO Q12H Cholecalciferol (Vitamin D3), 1 TAB PO QAM Diphenhydramine Hcl (Benadryl), 50 MG PO HS Melatonin (Melatonin), 10 MG PO HS Multivitamins/Minerals (Mvi With Minerals), 1 TAB PO QAM Pantoprazole (Pantoprazole Sodium), 40 MG PO QAM Paroxetine HCl (Paroxetine), 2 TAB PO Q2D Paroxetine HCl (Paroxetine), 1.5 TAB PO Q2D Pravastatin Sod (Pravastatin Sodium), 40 MG PO HS Rizatriptan Benzoate (Maxalt), 10 MG PO PRN Verapamil Hcl (Calan Sr Ext Rel), 180 MG PO QAM [Restless Leg Herb], 1 TAB PO HS [Vitamin B2], 100 MG PO QAM Scheduled PRN Acetaminophen (Tylenol Arthritis Ext Rel), 650 MG PO Q8H PRN for Pain Clonazepam (Klonopin), 0.5 MG PO DAILY PRN for Anxiety Coenzyme Q10 (Ubidecarenone) (Coq10), 10 MG PO DAILY PRN for PRN Docusate Sodium (Stool Softener), 100 MG PO DAILY PRN for CONSTIPATION Allergies Coded Allergies: No Known Allergies (Unverified , 03/01/17) Physical Exam Vital Signs Date Time Temp Pulse Resp B/P Pulse Ox O2 Delivery O2 Flow Rate FiO2 03/01/17 19:00 101 16 150/82 99 Room Air 03/01/17 18:20 106 16 161/98 93 Room Air 03/01/17 16:45 66 142/87 99 Room Air 03/01/17 16:32 89 03/01/17 15:54 36.5 98 20 152/81 95 Room Air Physical Exam GENERAL: Awake, alert, well-appearing, in no distress. The patient appears anxious. HENT: Normocephalic, atraumatic. Oropharynx unremarkable. EYES: Normal conjunctiva. Sclera non-icteric. NECK: Supple. No nuchal rigidity. FROM. No JVD. RESPIRATORY: Clear to auscultation. CARDIAC: Regular rate, normal rhythm. Extremities warm and well perfused. Pulses equal. ABDOMEN: Soft, non-distended. RUQ tenderness to palpation. No rebound or guarding. No masses. RECTAL: Deferred. MUSCULOSKELETAL: Chest examination reveals no tenderness. The back is symmetrical on inspection without obvious abnormality. Positive for lumbar tenderness. There is no CVA tenderness to palpation. No joint edema. LOWER EXTREMITIES: Calves are equal size bilaterally and non-tender. No edema. No discoloration. NEURO: Normal sensorium. No sensory or motor deficits noted. SKIN: No rash or jaundice noted. Medical Decision & Procedures ER Provider Diagnostic Interpretation: Radiology results as stated below per my review and radiologist interpretation: PA CHEST WITH ABDOMINAL SERIES CLINICAL HISTORY: Generalized abdominal pain. FINDINGS: A PA chest radiograph is compared to study dated 02/28/2017. The examination is degraded by patient rotation. The cardiomediastinal silhouette is unremarkable. Chronic interstitial thickening is unchanged. The lungs and pleural spaces are clear. No pneumothorax is seen. The skeletal structures are osteopenic. Mild degenerative changes noted throughout the thoracic spine. Supine and erect abdominal radiographs are correlated with abdominal CT dated 03/01/2017. There is a nonobstructed abdominal bowel gas pattern. No evidence of intraperitoneal free air is seen. Cholecystectomy clips are identified in the right upper quadrant. There is moderate to severe constipation. No abnormal abdominal calcifications are identified. There is mild lumbosacral spondylosis. A right hip arthroplasty is in place. IMPRESSION: 1. No active disease in the chest. 2. Moderate to severe constipation. Electronically signed by: Augusto Wasserman M.D. 03/01/2017 4:57 PM Dictated Date/Time: 03/01/2017 4:55 PM Laboratory Results 03/01/17 16:30 Red Blood Count 4.23, Mean Corpuscular Volume 91.7, Mean Corpuscular Hemoglobin 31.4, Mean Corpuscular Hemoglobin Concent 34.3, Mean Platelet Volume 10.1, Neutrophils (%) (Auto) 69.7, Lymphocytes (%) (Auto) 20.6, Monocytes (%) (Auto) 8.7, Eosinophils (%) (Auto) 0.5, Basophils (%) (Auto) 0.2, Neutrophils # (Auto) 7.13, Lymphocytes # (Auto) 2.11, Monocytes # (Auto) 0.89, Eosinophils # (Auto) 0.05, Basophils # (Auto) 0.02 03/01/17 16:30 Test 03/01/17 16:30 03/01/17 17:30 White Blood Count 10.23 K/uL (4.8-10.8) Red Blood Count 4.23 M/uL (4.2-5.4) Hemoglobin 13.3 g/dL (12.0-16.0) Hematocrit 38.8 % (37-47) Mean Corpuscular Volume 91.7 fL (80-100) Mean Corpuscular Hemoglobin 31.4 pg (25-34) Mean Corpuscular Hemoglobin Concent 34.3 g/dl (32-36) Platelet Count 264 K/uL (130-400) Mean Platelet Volume 10.1 fL (7.4-10.4) Neutrophils (%) (Auto) 69.7 % Lymphocytes (%) (Auto) 20.6 % Monocytes (%) (Auto) 8.7 % Eosinophils (%) (Auto) 0.5 % Basophils (%) (Auto) 0.2 % Neutrophils # (Auto) 7.13 K/uL (1.4-6.5) Lymphocytes # (Auto) 2.11 K/uL (1.2-3.4) Monocytes # (Auto) 0.89 K/uL (0.11-0.59) Eosinophils # (Auto) 0.05 K/uL (0-0.5) Basophils # (Auto) 0.02 K/uL (0-0.2) RDW Standard Deviation 48.2 fL (36.4-46.3) RDW Coefficient of Variation 14.4 % (11.5-14.5) Immature Granulocyte % (Auto) 0.3 % Immature Granulocyte # (Auto) 0.03 K/uL (0.00-0.02) Anion Gap 11.0 mmol/L (3-11) Estimated GFR () 88.5 Estimated GFR (Non- 76.3 BUN/Creatinine Ratio 20.4 (10-20) Calcium Level 9.7 mg/dl (8.5-10.1) Total Bilirubin 0.7 mg/dl (0.2-1) Aspartate Amino Transf (AST/SGOT) 74 U/L (15-37) Alanine Aminotransferase (ALT/SGPT) 181 U/L (12-78) Alkaline Phosphatase 172 U/L (45-117) Total Protein 7.7 gm/dl (6.4-8.2) Albumin 3.6 gm/dl (3.4-5.0) Lipase 372 U/L (73-393) Chemistry Specimen Hemolysis Direct Bilirubin 0.2 mg/dl (0-0.2) Laboratory results reviewed by me Medications Administered Medications (Trade) Dose Ordered Sig/Paul Route Start Time Stop Time Status Last Admin Dose Admin Sodium Chloride 1,000 ml @ 125 mls/hr Q8H STAT IV 03/01/17 16:15 03/01/17 20:40 DC 03/01/17 16:15 125 MLS/HR Sodium Chloride (Nss 1000ml) 500 ml @ 999 mls/hr Q31M STAT IV 03/01/17 16:15 03/01/17 16:45 DC 03/01/17 16:23 999 MLS/HR Lorazepam (Ativan Tab) 1 mg NOW STAT SL 03/01/17 16:15 03/01/17 16:17 DC 03/01/17 16:23 1 MG ED Course 1613: The patient was evaluated in room A4. A complete history and physical exam was performed. 1615: Ordered Ativan Tab 1 mg SL, NSS 500 ml @ 999 mls/hr IV, NSS 1000 ml @ 125 mls/hr IV. 1750: Upon reexamination, the patient was resting comfortably. I discussed the test results and treatment plan with her and her . The patient will be evaluated for further management. 1815: Discussed the patient's case with Dr. Steven. The patient will be evaluated for further treatment and disposition. Medical Decision Triage Nursing notes reviewed. The patient's presentation and history were concerning for abdominal pain and anxiety. Patient has continued back pain from her known fracture. Etiologies such as anxiety, mood disorder, constipation, worsening UTI, appendicitis, diverticulitis, obstruction, inflammatory bowel disease, renal colic, PUD, biliary pathology, pancreatitis, mesenteric ischemia, aortic pathology, infections, genitourinary, perforated viscus, as well as others were entertained. The patient was evaluated. She was hydrated. Records were reviewed from yesterday. She was quite anxious and requested anxiety medicine over pain medicine. She was given 1 mg of Ativan sublingual. X-ray imaging was performed. The patient had resolution of her leukocytosis. Her AST, ALT, and alkaline phosphatase were elevated. Lipase was negative. Her LFTs were elevated yesterday but prior record review indicates that this is new. The patient has had a prior cholecystectomy. X-ray imaging revealed moderate constipation. The patient and her note that she is not doing well at home despite taking appropriate antibiotics for her UTI. Given her elevated LFTs and right upper quadrant pain coupled with her constipation, UTI, and pronoun lumbar fracture further management in the hospital was discussed with the patient. The felt that this was most appropriate since they tried at home and she is getting worse. Consult patient was made with internal medicine for further evaluation and management. The chart was completed utilizing [employer] ? IO Speech voice recognition software. Grammatical errors, random word insertions, pronoun errors, and incomplete sentences are an occasional consequence of this system due to software limitations, ambient noise, and hardware issues. Any formal questions or concerns about the content, text, or information contained within the body of this dictation should be directly addressed to the physician for clarification. Consults Time Called: 1802 Consulting Physician: Dr. Steven Returned Call: [id number] Discussed the patient's case. The patient will be evaluated for further treatment and disposition. Impression Primary Impression: RUQ abdominal pain Additional Impressions: Elevated LFTs Constipation UTI (urinary tract infection) Anxiety Scribe Attestation The scribe's documentation has been prepared under my direction and personally reviewed by me in its entirety. I confirm that the note above accurately reflects all work, treatment, procedures, and medical decision making performed by me. Departure Information Dispostion Being Evaluated By Hospitalist Referrals Jimbo Lerner M.D. (PCP) Patient Instructions My [facility] Problem Qualifiers
[2017-03-02 06:56] LABS: ALB/GLOB RATIO 0.9 (0.9-2); BUN/CREATININE RATIO 13.4 (10-20); CALCIUM 9.3 mg/dl (8.5-10.1); CREATININE 0.7 mg/dl (0.60-1.20); POTASSIUM 3.7 mmol/L (3.5-5.1)
[2017-03-02 07:26] VITALS: BP 125/73; PULSE 89; TEMP 36.7; O2SAT 95
[2017-03-02] MEDS ORDERED: VERAPAMIL HCL 180 MG TABCR PO SCH (08:00)
[2017-03-02] MEDS ORDERED: ENOXAPARIN 40 MG/0.4 ML SYR SQ SCH (08:00)
[2017-03-02] MEDS ORDERED: CYANOCOBALAMIN 100 MCG TAB (VIT B-12) PO SCH (08:00)
[2017-03-02] MEDS ORDERED: POLYETHYLENE (MIRALAX) 17 GM PACK PO SCH (08:00)
[2017-03-02] MEDS ORDERED: CEROVITE ADV FORMULA TAB PO SCH (08:00)
[2017-03-02] MEDS ORDERED: PANTOprazole SOD 40 MG TAB PO SCH (08:00)
[2017-03-02] MEDS ORDERED: CHOLECALCIFEROL 1000 INTER.UNIT TAB PO SCH (08:00)
[2017-03-02] MEDS: CEFDINIR 300 MG CAP PO SCH (08:32)
[2017-03-02] MEDS: CALCIUM 600MG + VIT D 400 IU TAB PO SCH (08:33)
[2017-03-02] MEDS: CALCITONIN SALMON NA 200 IU/AC 3.7 ML BTL SCH (08:34)
[2017-03-02] MEDS ORDERED: PAROXETINE 30 MG TAB PO SCH (09:00)
[2017-03-02] MEDS ORDERED: ERGOCALCIFEROL 50,000 INTER.UNIT CAP PO SCH (09:00)
[2017-03-02] MEDS ORDERED: VTMD PO ×2 (09:07)
[2017-03-02] MEDS ORDERED: MRLP17 PO ×2 (09:07)
[2017-03-02] MEDS ORDERED: ULT50X PO ×2 (09:07)
--- NOTE | 2017-03-02 09:11 | Discharge Instructions ---
Discharge Instructions Date of Service March 02, 2017. Admission Reason for Admission: Abdominal Pain Discharge Discharge Diagnosis / Problem: Constipation Discharge Goals Goal(s): Decrease discomfort, Learn about illness, Diagnostic testing, Therapeutic intervention, Prevent Disease Progression Activity Recommendations Activity Limitations: resume your previous activity . Instructions / Follow-Up Instructions / Follow-Up New medications: 1. Tramadol 50 mg by mouth every 6 hours as needed for pain management 2. MiraLAX daily as instructed on bottle 3. Vitamin D supplement 50,000 IU on TUESDAY's Prescription has been sent to you pharmacy 4. Continue antibiotic as prescribed to you on 02/28 5. Zofran 4 mg by mouth every 6 hours as needed for nausea Resume all other regular home medications as prescribed Please follow-up with your PCP within 5-7 days Please follow-up/keep all of your subspecialty appointments Current Hospital Diet Patient's current hospital diet: Regular Diet Discharge Diet Recommended Diet: Regular Diet Pending Studies Studies pending at discharge: no List of pending studies: Laboratory Results Hemoglobin A1c Test 02/21/17 10:53 Range/Units Estimated Average Glucose 114 mg/dl Hemoglobin A1c 5.6 4.5-5.6 % Medical Emergencies . Who to Call and When: Medical Emergencies: If at any time you feel your situation is an emergency, please call 911 immediately. . Non-Emergent Contact Non-Emergency issues call your: Primary Care Provider . . "Provider Documentation" section prepared by Genoveva Chun. . VTE Core Measure Inpt VTE Proph given/why not?: Enoxaparin (Lovenox)SQ
[2017-03-02 09:27] VITALS: BP 125/73; PULSE 89; TEMP 36.7; O2SAT 95
--- NOTE | 2017-03-02 09:32 | Discharge Summary ---
Discharge Summary Date of Service March 02, 2017. (Genoveva Chun .MICHELLE) Discharge Summary Admission Date: March 01, 2017 at 19:17 Discharge Date: March 02, 2017 Discharge Disposition: Home Principal Diagnosis: Constipation Problems/Secondary Diagnoses: Abdominal pain, likely secondary to constipation cause by pain medications Osteoporosis with L1 compression fracture Osteoporosis with vitamin D deficiency UTI diagnosed on 02/28 Elevated LFTs Anxiety with panic attacks Hyperlipidemia HTN h/o migraines GERD Procedures: PA CHEST WITH ABDOMINAL SERIES CLINICAL HISTORY: Generalized abdominal pain. FINDINGS: A PA chest radiograph is compared to study dated 02/28/2017. The examination is degraded by patient rotation. The cardiomediastinal silhouette is unremarkable. Chronic interstitial thickening is unchanged. The lungs and pleural spaces are clear. No pneumothorax is seen. The skeletal structures are osteopenic. Mild degenerative changes noted throughout the thoracic spine. Supine and erect abdominal radiographs are correlated with abdominal CT dated 03/01/2017. There is a nonobstructed abdominal bowel gas pattern. No evidence of intraperitoneal free air is seen. Cholecystectomy clips are identified in the right upper quadrant. There is moderate to severe constipation. No abnormal abdominal calcifications are identified. There is mild lumbosacral spondylosis. A right hip arthroplasty is in place. IMPRESSION: 1. No active disease in the chest. 2. Moderate to severe constipation. Electronically signed by: Augusto Wasserman M.D. 03/01/2017 4:57 PM Dictated Date/Time: 03/01/2017 4:55 PM The status of this report is Signed. Draft = Not yet reviewed or approved by Radiologist. Signed = Reviewed and approved by Radiologist. (Genoveva Chun ., JOSEFC) Medication Reconciliation New Medications: Ondansetron Hcl (Zofran) 4 Mg Tab 4 MG PO Q6H PRN for Nausea for 5 Days, #20 TAB Ergocalciferol (Vitamin D) 50,000 Interunit Cap 40628 INTERUNIT PO We@0900 for 30 Days, #4 CAP Polyethylene (Miralax) 17 Gm Pow 17 GM PO DAILY for 30 Days Tramadol HCl (Tramadol HCl) 50 Mg Tab 50 MG PO Q6 PRN for Pain for 3 Days, #12 TAB Continued Medications: Acetaminophen (Tylenol Arthritis Ext Rel) 650 Mg Cplt 650 MG PO Q8H PRN for Pain, CAP Calcium Carbonate-Vitamin D (Calcium 500 + D) 1 Tab Tab 1 TAB PO BID Cefdinir (Omnicef) 300 Mg Cap 300 MG PO Q12H for 10 Days, #20 CAP Cholecalciferol (Vitamin D3) 1,000 Unit Tab 1 TAB PO QAM, TAB 3 Refills Clonazepam (Klonopin) 0.5 Mg Tab 0.5 MG PO DAILY PRN for Anxiety, TAB Coenzyme Q10 (Ubidecarenone) (Coq10) Unknown Strength Cap 10 MG PO DAILY PRN for PRN Diphenhydramine Hcl (Benadryl) 25 Mg Cap 50 MG PO HS, CAP Docusate Sodium (Stool Softener) 100 Mg Cap 100 MG PO DAILY PRN for CONSTIPATION Melatonin (Melatonin) 10 Mg Cap 10 MG PO HS Multivitamins/Minerals (Mvi With Minerals) Tab 1 TAB PO QAM, TAB Pantoprazole (Pantoprazole Sodium) 40 Mg Tab 40 MG PO QAM, #90 Paroxetine HCl (Paroxetine) 30 Mg Tab 2 TAB PO Q2D ALTERNATE WITH 1 1/2 TAB Paroxetine HCl (Paroxetine) 30 Mg Tab 1.5 TAB PO Q2D ALTERNATE WITH 2 TABS Pravastatin Sod (Pravastatin Sodium) 40 Mg Tab 40 MG PO HS Rizatriptan Benzoate (Maxalt) 10 Mg Tab 10 MG PO PRN, TAB Verapamil Hcl (Calan Sr Ext Rel) 180 Mg Tab 180 MG PO QAM, TAB [Restless Leg Herb] () 1 TAB PO HS [Vitamin B2] () 100 MG PO QAM Discharge Exam Patient states she is feeling well this AM. She had a large bowel movement this morning with significant relief in her symptoms. Patient has been following with Dr. Lerner outpatient for compression fracture- pain is well-controlled. Review of Systems: Constitutional: No chills, No fatigue, No fever, No sweats, No weakness Respiratory: No cough, No hemoptysis, No shortness of breath Cardiovascular: No chest pain, No edema, No palpitations Abdomen: No constipation, No diarrhea, No nausea, No pain, No vomiting Musculoskeletal: No calf pain, No joint pain, No muscle pain, No swelling Genitourinary - Female: No dysuria, No hematuria Neurologic: No numbness/tingling, No weakness Psychiatric: No anxiety, No depression symptoms Hematologic / Lymphatic: No abnormal bleeding/bruising Integumentary: No itch, No new/changing skin lesions, No rash Physical Exam: General Appearance: no apparent distress Eyes: normal inspection, PERRL ENT: hearing grossly normal Neck: supple Respiratory/Chest: lungs clear, no respiratory distress, no accessory muscle use Cardiovascular: regular rate, rhythm Abdomen / GI: normal bowel sounds, non tender, + distended (mildly distended ) Extremities: no calf tenderness, no pedal edema Neurologic/Psychiatric: alert, normal reflexes, oriented x 3 Skin: normal color, warm/dry, no rash (Genoveva Chun, PA-C) Hospital Course Abdominal pain, likely secondary to constipation cause by pain medications- RESOLVED: - Admit to med/surg - Treat w/ MiraLax and fleet enema- large bowel movement reported by patient w/ relief in symptoms - IVF - Patient reports significant relief in her symptoms- discussed taking MiraLAX daily to prevent reoccurring symptoms Osteoporosis with L1 compression fracture: - Following outpatient w/ Dr. Lerner- reports pain is well-controlled, no difficulty ambulating/radiating pain/bowel incontinence - Lidoderm patch - Tramadol q6 hrs PRN- discharged with medication for continued pain control Osteoporosis with vitamin D deficiency: 50,000 units of ergocalciferol weekly and additional use of vitamin D3 daily UTI diagnosed on 02/28: Urine culture growing E. coli- continue antibiotics as prescribed Elevated LFTs: Trending downwards Anxiety with panic attacks: Continue Paxil and Klonopin Hyperlipidemia: Continue her Pravachol HTN: Continue Verapamil h/o migraines: Continue Maxalt GERD: Continue Protonix DVT prophylaxis: Lovenox Dispo: Discharge to home Total Time Spent: Greater than 30 minutes This includes examination of the patient, discharge planning, medication reconciliation, and communication with other providers. (Genoveva Chun, PA-C) PA Physician Supervision Note: I interviewed and examined the patient. Discussed with Genoveva Chun PAC and agree with findings and plan as documented in the note. Any exceptions or clarifications are listed here: None Pt here with abdominal and back pain with subacute lumbar compression fracture and constipation from pain control and immobility did have large bowel movement and all has improved, ate lunch and was reasonably mobile vitals stable abd soft non tender le with good sensation and strength will discharge home with ultram and follow up with outpt provider Documented By: Taz Walton (Taz Walton M.D.) Discharge Instructions Please refer to the electronic Patient Visit Report (Discharge Instructions) for additional information. (Genoveva Chun, PA-C) Follow-Up Please follow-up with your PCP within 5-7 days Please follow-up/keep all of your subspecialty appointments (Genoveva Chun, PA-C) Additional Copies To Jimbo Lerner M.D.
[2017-03-02] MEDS: ONDANSETRON INJ 2 MG/ML 2 ML VIAL IV PRN (12:04)
[2017-03-02] MEDS ORDERED: ONDA4TAB65 PO ×2 (13:56)
[2017-03-02] MEDS ORDERED: LIDODERM (LIDOCAINE) PATCH 5% TD SCH (21:00)
[2017-03-03] MEDS ORDERED: PAROXETINE 30 MG TAB PO SCH (09:00)
[2017-05-12] MEDS ORDERED: HYDR-4330 PO (12:33)
== END 2017-03-02 15:30 | disposition home or self-care (01) ==
LOC: ENRESERVTM → ENRESERVDT → C.EDB 15:48 → C.4E 19:17
PROVIDERS: ADMIT Family Medicine; ATTEND Internal Medicine
DX: R10.9 Unspecified abdominal pain (principal); M80.08XA Age-related osteoporosis with current pathological fracture, vertebra(e), initial encounter for fracture; N39.0 Urinary tract infection, site not specified; E55.9 Vitamin D deficiency, unspecified; R94.5 Abnormal results of liver function studies; E78.5 Hyperlipidemia, unspecified; I10 Essential (primary) hypertension; K21.9 Gastro-esophageal reflux disease without esophagitis; E78.00 Pure hypercholesterolemia, unspecified; Z90.710 Acquired absence of both cervix and uterus

== ENCOUNTER → 2017-04-27 | Outpatient (CLI) | payer OTHER, BC ==
[~2017-04-27] MED LIST changes: +ASPEC81 PO; +BND25 PO; -CEFD300C2 PO; -COEN10CA4 PO; +CPR500 PO; -DIPH25CA5 PO; +FRRG PO; +HYDR-4330 PO; +HYDR-5688 PO; +MRLP17 PO; +MULT-890 PO; +ONDA8TAB6 PO; +OXYSR10 PO; -PANT40TA2 PO; +PRT/40 PO; +ULT50X PO; +VTMD PO
[2017-04-27 17:44] LABS: BASO % 0.2 %; BASO ABS # 0.02 K/uL (0-0.2); COMPLETE YES; HEMATOCRIT 42.5 % (37-47); IG% 0.1 %; LYMPH % 28.2 %; LYMPH ABS # 2.29 K/uL (1.2-3.4); MEAN CELL VOLUME 93.8 fL (80-100); MEAN CORPUSCULAR HGB CONC 34.1 g/dl (32-36); MEAN PLATELET VOLUME 11.3 fL (7.4-10.4); MONO % 9.5 %; PLATELET COUNT 257 K/uL (130-400); RED BLOOD COUNT 4.53 M/uL (4.2-5.4); WHITE BLOOD COUNT 8.12 K/uL (4.8-10.8)
[2017-04-27 17:56] LABS: ALT/SGPT 26 U/L (12-78); BLOOD UREA NITROGEN 17 mg/dl (7-18); BUN/CREATININE RATIO 18.5 (10-20); CALCIUM 9.9 mg/dl (8.5-10.1); CARBON DIOXIDE 25 mmol/L (21-32); CHLORIDE 107 mmol/L (98-107); CREATININE 0.91 mg/dl (0.60-1.20); GLUCOSE 122 mg/dl (70-99); POTASSIUM 4.2 mmol/L (3.5-5.1); SODIUM 139 mmol/L (136-145)
[2017-04-27 18:04] LABS: ALB/GLOB RATIO 1.1 (0.9-2); ALKALINE PHOSPHATASE 65 U/L (45-117); AST/SGOT 16 U/L (15-37); FERRITIN 40.5 ng/ml (8.0-388.0); TOTAL IRON BINDING CAPACITY 349 mcg/dl (250-450)
== END | disposition home or self-care (01) ==
LOC: C.LABBFT 10:52
PROVIDERS: ATTEND Physician Assistant Medical
DX: R00.0 Tachycardia, unspecified (principal)

== ENCOUNTER 2017-05-19 08:56 | Inpatient (IN) | payer OTHER, BC ==
--- NOTE | 2017-02-21 10:42 | PAT Medication Instructions ---
Service Date Feb 21, 2017. Current Home Medication List Acetaminophen (Tylenol Arthritis Ext Rel), 650 MG PO Q8H PRN for Pain Calcium Carbonate-Vitamin D (Calcium 500 + D), 1 TAB PO BID Cholecalciferol (Vitamin D3), 1 TAB PO QAM Clonazepam (Klonopin), 0.5 MG PO DAILY PRN for Anxiety Coenzyme Q10 (Ubidecarenone) (Coq-10), 10 MG PO QAM Diphenhydramine Hcl (Benadryl), 50 MG PO HS Docusate Sodium (Stool Softener), 100 MG PO DAILY PRN for CONSTIPATION Melatonin (Melatonin), 10 MG PO HS Multivitamins/Minerals (Mvi With Minerals), 1 TAB PO QAM Pantoprazole (Pantoprazole Sodium), 40 MG PO QAM Paroxetine HCl (Paroxetine), 2 TAB PO Q2D Paroxetine HCl (Paroxetine), 1.5 TAB PO Q2D Pravastatin Sod (Pravastatin Sodium), 40 MG PO HS Rizatriptan Benzoate (Maxalt), 10 MG PO PRN Verapamil Hcl (Calan Sr Ext Rel), 180 MG PO QAM [Restless Leg Herb], 1 TAB PO HS [Vitamin B2], 100 MG PO QAM Medication Instructions For Your Scheduled Surgery - Hold the following medications as of today 02/21/17: [Restless Leg Herb], 1 TAB PO HS Coenzyme Q10 (Ubidecarenone) (Coq-10), 10 MG PO QAM - Hold the following medications the morning of surgery: Cholecalciferol (Vitamin D3), 1 TAB PO QAM [Vitamin B2], 100 MG PO QAM Multivitamins/Minerals (Mvi With Minerals), 1 TAB PO QAM Docusate Sodium (Stool Softener), 100 MG PO DAILY PRN for CONSTIPATION Calcium Carbonate-Vitamin D (Calcium 500 + D), 1 TAB PO BID - Take the following medications the morning of surgery with a sip of water OTHERWISE NOTHING TO EAT OR DRINK AFTER MIDNIGHT: Verapamil Hcl (Calan Sr Ext Rel), 180 MG PO QAM Pantoprazole (Pantoprazole Sodium), 40 MG PO QAM Paroxetine HCl (Paroxetine) Clonazepam (Klonopin), 0.5 MG PO DAILY PRN for Anxiety (if needed) Rizatriptan Benzoate (Maxalt), 10 MG PO PRN (if needed) Acetaminophen (Tylenol Arthritis Ext Rel), 650 MG PO Q8H PRN for Pain (may take if needed up to 4 hours prior to surgery) - Take the following medications as scheduled the night before surgery: Melatonin (Melatonin), 10 MG PO HS Diphenhydramine Hcl (Benadryl), 50 MG PO HS Docusate Sodium (Stool Softener), 100 MG PO DAILY PRN for CONSTIPATION Rizatriptan Benzoate (Maxalt), 10 MG PO PRN (if needed) Calcium Carbonate-Vitamin D (Calcium 500 + D), 1 TAB PO BID Pravastatin Sod (Pravastatin Sodium), 40 MG PO HS Acetaminophen (Tylenol Arthritis Ext Rel), 650 MG PO Q8H PRN for Pain If you have any questions please call us at [phone] or [phone] or [phone]
[2017-02-21 11:39] LABS: BASO % 0.3 %; BASO ABS # 0.02 K/uL (0-0.2); COMPLETE YES; HEMATOCRIT 41.3 % (37-47); IG% 0.4 %; LYMPH % 29.7 %; LYMPH ABS # 2.37 K/uL (1.2-3.4); MEAN CELL VOLUME 94.5 fL (80-100); MEAN CORPUSCULAR HEMOGLOBIN 31.6 pg (25-34); MEAN CORPUSCULAR HGB CONC 33.4 g/dl (32-36); MEAN PLATELET VOLUME 10.9 fL (7.4-10.4); MONO % 8.8 %; NEUT % 59.8 %; PLATELET COUNT 211 K/uL (130-400); RED BLOOD COUNT 4.37 M/uL (4.2-5.4); WHITE BLOOD COUNT 7.98 K/uL (4.8-10.8)
[2017-02-21 11:41] LABS: URINE APPEARANCE CLEAR (CLEAR); URINE BILIRUBIN NEG (NEG); URINE COLOR DK YELLOW; URINE NITRITE NEG (NEG); URINE PH 5.5 (4.5-7.5); URINE SPECIFIC GRAVITY 1.027 (1.000-1.030); UROBILINOGEN NEG (NEG)
[2017-02-21 11:54] LABS: MANUAL MICROSCOPIC REQUIRED? NO; REVIEW REQ? NO
[2017-02-21 11:54] LABS: PARTIAL THROMBOPLASTIN RATIO 0.9; PROTHROMBIN TIME (PATIENT) 10.7 SECONDS (9.0-12.0)
[2017-02-21 12:04] LABS: CALCIUM 9.7 mg/dl (8.5-10.1); CREATININE 0.85 mg/dl (0.60-1.20); POTASSIUM 4.2 mmol/L (3.5-5.1)
[2017-02-21 12:15] LABS: ESTIMATED AVERAGE GLUCOSE 114 mg/dl; HA1C FLAG Normal (Normal)
[2017-05-12 12:34] VITALS: BMI 27.0
--- NOTE | 2017-05-18 14:51 | History and Physical ---
History & Physical Date May 18, 2017. Chief Complaint Right knee pain History of Present Illness The patient is a 76 year old female with complaints of right knee pain and disability secondary to end-stage DJD. She has failed conservative care including previous corticosteroid injections. She now desires to proceed with right total knee arthroplasty Past Medical/Surgical History Medical Problems: (1) Abdominal pain (2) Diverticulosis (3) Diverticulosis Colon (W/O Ment Of Hemorrhage) (4) Hypercholesteremia (5) Migraine Unspecified W/O Intract Mgrn W/O Status Migrainosus (6) Osteoporosis (7) Osteoporosis Nos (8) UTI (urinary tract infection) Surgical Problems: (1) History of femur fracture (2) S/P hysterectomy Additional History Hepatic Disease: No Endocrine Disorder: No Kidney Disease: No Hypertension: No Heart Disease: No Bleeding Tendencies: No Infectious Diseases: No Other: Hypercholesterolemia, Depression, Osteoporosis Allergies Coded Allergies: No Known Allergies (Unverified , 05/12/17) Home Medications Scheduled Calcium Carbonate-Vitamin D (Calcium 500 + D), 1 TAB PO BID Cholecalciferol (Vitamin D3), 1 TAB PO QAM Diphenhydramine Hcl (Benadryl), 50 MG PO HS Melatonin (Melatonin), 10 MG PO HS Pantoprazole (Pantoprazole Sodium), 40 MG PO QAM Paroxetine HCl (Paroxetine), 2 TAB PO Q2D Paroxetine HCl (Paroxetine), 1.5 TAB PO Q2D Pravastatin Sod (Pravastatin Sodium), 40 MG PO HS Rizatriptan Benzoate (Maxalt), 10 MG PO PRN Verapamil Hcl (Calan Sr Ext Rel), 180 MG PO QAM [Vitamin B2], 100 MG PO QAM Scheduled PRN Acetaminophen (Tylenol Arthritis Ext Rel), 650 MG PO Q8H PRN for Pain Clonazepam (Klonopin), 0.5 MG PO DAILY PRN for Anxiety Docusate Sodium (Stool Softener), 100 MG PO DAILY PRN for CONSTIPATION Hydrocodone-Acetaminophen (Lortab 5-325 mg), 1 TAB PO Q4 PRN for Pain Physical Examination Skin: warm/dry Eyes: normal inspection, EOMI ENT: normal ENT inspection Head: normocephalic Neck: supple, no adenopathy Respiratory/Chest: lungs clear, normal breath sounds Cardiovascular: regular rate, rhythm Abdomen / GI: normal bowel sounds, non tender Extremities: + pertinent finding (Right knee neutrally aligned, ROM ~ 0-12o degrees) Addiitonal Comments: Xrays: right knee neutrally aligned, diffuse tricompartmental DJD with osteophytes medial and PF compartment Diagnosis Right knee arthritis Plan of Treatment Right total knee arthroplasty
[~2017-05-19] VITALS: Ht 162.6 cm; Wt 73.0 kg
[2017-05-19] VITALS (11 sets, daily range): BP systolic 104–156; BP diastolic 60–85; PULSE 100–110; TEMP 36.4–37; O2SAT 91–95; Ht 162.6 cm; Wt 73.0 kg
[~2017-05-19 08:56] MED LIST changes: +ACETAMINOPHEN 500 MG TAB PO SCH; -ASPEC81 PO; +ATROPINE SULFATE 0.1 MG/ML 5ML SYR IV PRN; +BUPIVACAINE 0.25% 30 ML VIAL ONE; +BUPIVACAINE 0.5 % 5 MG/1 ML PF 10ML VIAL ONE; +CEFAZOLIN 2000 MG/60 ML D5W 60 ML IV SCH; -COEN100C7 PO; -CPR500 PO; +CeleBREX 200 MG CAP PO SCH; +DEXAMETHASONE 4 MG TAB PO SCH; +EpHEDrine SULFATE INJ 50 MG/ML AMP IV PRN; +FAMOTIDINE 20 MG TAB PO SCH; -FRRG PO; +GABAPENTIN 300 MG CAP PO SCH; -HYDR-5688 PO; +LACTATED RINGER'S 1000ML 1,000 ML IV SCH; +LACTATED RINGER'S 1000ML 500 ML IV ONE; +METOCLOPRAMIDE HCL 10 MG TAB PO SCH; -MRLP17 PO; -MULT-513 PO; -MULT-890 PO; -ONDA8TAB6 PO; +ONDANSETRON INJ 2 MG/ML 2 ML VIAL IV PRN; -OXYSR10 PO; +ROPIVACAINE 5MG/ML 30 ML 150 MG, BUPIVACAINE/EPINEPHR 0.5% MPF 30 ML, KETOROLAC TROMETH... INFIL SCH; -ULT50X PO; -VTMD PO; -[UNRECOGNIZED DRUG - OTHER] PO
[2017-05-19] MEDS ORDERED: FENTANYL CITRATE INJ 50 MCG/1 ML 2 ML VIAL ONE (09:33)
[2017-05-19] MEDS ORDERED: MIDAZOLAM HCL 1 MG/ML 2ML VIAL ONE (09:33)
[2017-05-19] MEDS ORDERED: ONDANSETRON INJ 2 MG/ML 2 ML VIAL ONE (09:33)
[2017-05-19] MEDS ORDERED: PROPOFOL IV EMULSION 10 MG/ML 20 ML VIAL IV ONE (09:33)
[2017-05-19 10:18] LABS: PARTIAL THROMBOPLASTIN RATIO 0.9; PROTHROMBIN TIME (PATIENT) 11.1 SECONDS (9.0-12.0)
[2017-05-19] MEDS ORDERED: POVIDONE-IODINE OP SOLN 30 ML BTL ONE (10:56)
[2017-05-19] MEDS ORDERED: ORTHO JOINT ANESTHETIC ONE (10:56)
[2017-05-19] MEDS ORDERED: BACITRACIN 50000 UNIT VIAL ONE (10:56)
[2017-05-19] MEDS: TRANEXAMIC ACID INJ 1,000 MG in SODIUM CHLORIDE 0.9% 100ML 100 ML IV SCH ×2 (11:00→17:31)
--- NOTE | 2017-05-19 11:04 | History & Physical Bridge Note ---
H&P Re-Evaluation Bridge Note: I have examined the patient, reviewed the History & Physical and in the interval since the performance of the History & Physical I have noted the following changes of clinical significance: No changes noted
[2017-05-19] MEDS ORDERED: ESMOLOL HCL 10 MG/ML 10 ML VIAL ONE (11:54)
--- NOTE | 2017-05-19 12:23 | [facility] Operative Report ---
Operative Report Operative Date May 19, 2017. Pre-Operative Diagnosis Right Knee Degenerative Joint Disease Post-Operative Diagnosis Right Knee Degenerative Joint Disease Procedure(s) Performed Right Total Knee Arthroplasty, Cemented femoral was size 3 tibial size 3 tibial Pauling 9 patella size [address] Skaggs Bellstand Attendant Surgeon(s) Braeden Rivera PA-C Estimated Blood Loss 10 mL Findings Severe OA and osteopenia Specimens A: Right Knee Bone and Tissue Disposition Recovery Room / PACU Description of Procedure Patient's Right leg was prepped and draped in usual sterile manner. The limb was exsanguinated with an Esmarch bandage tourniquet was inflated to 300 mmHg. A longitudinal incision was made, soft tissue was sharply dissected electrocautery and Aquamantis was used for hemostasis. A median parapatellar incision was made, the patella was everted and the knee was flexed. Fat pad was removed and the medial face of the tibia was cleared of soft tissue using a Bovie and a Thompson was retracted back using a blunt Martinez. Next, the extramedullary alignment guide was placed and the proximal tibial osteotomy was made using oscillating saw. This bone fragment was removed using a knife and the bone tenaculum. Next, attention was turned to the distal femur. The drill was used to get access to the femoral canal. The flexible intramedullary guide qamar was placed and the distal femoral cut was made with a 10 mm resection. Following this the femur was sized and the appropriate size was determined and the distal femoral chamfer cuts were made using the oscillating saw. Next the intercondylar notch was cut using the appropriate guide. This bone fragment was removed. A lamina bull fiddle player was used to gain access to the menisci which were removed. Aquamantis was used posteriorly to gain hemostasis. Appropriate sized trial femoral component was impacted into position and the tibia was presented using a blunt Martinez and a sharp Martinez. Tibial component sized and the appropriate one was chosen and used. The tibia was prepared using the appropriately sized punch and a mallet and the tibia was reduced using an appropriately sized plastic trial. This gave good reproduction of soft tissue tension and full extension. Next the patellar was sized and the appropriate reaming blade was used to ream the patella, and a the appropriate size patella guide to drill 3 holes for the pegs. Patella was then placed and he was taken through full range of motion and the patella tracked well. All trial components were removed the joint mix was utilized posteriorly and pericapsular. A bone plug was prepared and impacted into the femoral canal and pulsatile irrigation was used throughout the knee. Cement was mixed, final components were obtained and cemented in position and excess cement was removed. The Knee was held in extension while cement hardened. A Hemovac drain was placed. Following this the wound was closed using #1 Vicryl #2 FiberWire for the extensor mechanism and 0 Dexon for subcutaneous tissue and kirsten for skin a Silverlon dressing was applied. The patient was taken to recovery in stable in good condition he tolerated the procedure well. I attest to the content of the Intraoperative Record and any orders documented therein. Any exceptions are noted below.
[2017-05-19] MEDS ORDERED: LABETALOL HCL IV 5 MG/ML 20ML IV ONE (12:32)
[2017-05-19] MEDS ORDERED: MAGNESIUM HYDROXIDE SUSP 30 ML UDC PO PRN (13:00)
[2017-05-19] MEDS ORDERED: ONDANSETRON INJ 2 MG/ML 2 ML VIAL IV PRN (13:00)
[2017-05-19] MEDS ORDERED: BISACODYL 10 MG SUPP PR PRN (13:00)
[2017-05-19] MEDS ORDERED: CLONAZEPAM 0.5 MG TAB PO PRN (13:00)
[2017-05-19] MEDS ORDERED: MoRPHine SULFATE 2 MG/ML CARP IV PRN (13:00)
[2017-05-19] MEDS ORDERED: ALUMINUM/MAGNESIUM/SIMETH (MAALOX MAX) 30 ML UDC PO PRN (13:00)
--- NOTE | 2017-05-19 13:21 | DIAGNOSTIC IMAGING REPORT ---
RIGHT KNEE 1 OR 2 VIEWS ROUTINE CLINICAL HISTORY: 76 years-old Female presenting with postsurgical right knee arthroplasty. TECHNIQUE: Frontal and lateral views of the right knee were obtained. COMPARISON: None. FINDINGS: Evidence of total right knee arthroplasty with patellar resurfacing. No malalignment. No acute fracture. Surgical drain in place with expected postoperative soft tissue and intra-articular emphysema. Overlying skin kirsten. IMPRESSION: 1. Expected postsurgical finding status post total right knee arthroplasty with patellar resurfacing. Electronically signed by: Audi Castillo M.D. 05/19/2017 1:20 PM Dictated Date/Time: 05/19/2017 1:18 PM
--- NOTE | 2017-05-19 14:57 | Anesthesiology Progress Note ---
Anesthesia Post Op Note Date & Time May 19, 2017 at 14:53 Vital Signs Pain Intensity: 0 Vital Signs Past 12 Hours Date Time Temp Pulse Resp B/P (MAP) Pulse Ox O2 Delivery O2 Flow Rate FiO2 05/19/17 14:32 112 17 94 05/19/17 14:32 112 17 05/19/17 14:30 98/53 05/19/17 14:27 110 19 93 05/19/17 14:27 111 19 05/19/17 14:25 103/58 05/19/17 14:22 109 19 91 05/19/17 14:22 110 19 05/19/17 14:21 109 21 05/19/17 14:21 109 21 104/52 92 05/19/17 14:16 110 19 05/19/17 14:16 110 19 89 05/19/17 14:15 109/52 05/19/17 14:11 109 28 05/19/17 14:11 110 28 92 05/19/17 14:11 37.7 05/19/17 14:10 24 05/19/17 14:10 110 24 102/50 92 05/19/17 14:06 107/53 05/19/17 14:05 109 17 05/19/17 14:05 109 17 86 05/19/17 14:01 107/55 05/19/17 14:00 109 20 05/19/17 14:00 109 20 92 05/19/17 13:59 108 19 93 05/19/17 13:59 108 19 05/19/17 13:55 108/54 05/19/17 13:54 108 18 93 05/19/17 13:54 108 18 05/19/17 13:50 103/52 05/19/17 13:49 107 17 92 05/19/17 13:49 106 17 05/19/17 13:48 108 23 92 05/19/17 13:48 107 23 05/19/17 13:45 104/57 05/19/17 13:43 107 15 05/19/17 13:43 106 15 95 05/19/17 13:40 103/55 05/19/17 13:38 106 20 05/19/17 13:38 105 20 90 05/19/17 13:35 109/56 05/19/17 13:33 105 16 91 05/19/17 13:33 105 16 7/20/17 13:32 103 17 93 05/19/17 13:32 102 17 05/19/17 13:30 109/59 05/19/17 13:27 104 17 92 05/19/17 13:27 104 17 05/19/17 13:25 93/53 05/19/17 13:22 101 13 94 05/19/17 13:22 101 13 05/19/17 13:20 108/55 05/19/17 13:17 101 18 92 05/19/17 13:17 101 18 05/19/17 13:16 103 20 05/19/17 13:16 103 20 103/50 94 05/19/17 13:11 101 16 05/19/17 13:11 101 16 93 05/19/17 13:10 101 16 96/52 92 05/19/17 13:10 102 16 05/19/17 13:06 105/57 05/19/17 13:05 101 15 95 05/19/17 13:05 101 15 05/19/17 13:00 100 16 05/19/17 13:00 101 16 112/54 93 05/19/17 12:55 99 12 102/57 95 05/19/17 12:55 99 12 05/19/17 12:51 117/63 05/19/17 12:50 37.2 102 14 117/63 98 Mask 10 05/19/17 12:50 101 25 98 05/19/17 12:50 101 25 05/19/17 09:21 36.8 100 20 156/85 92 Room Air Notes Mental Status: alert / awake / arousable, participated in evaluation Pt Amnestic to Procedure: Yes Nausea / Vomiting: adequately controlled Pain: adequately controlled Airway Patency, RR, SpO2: stable & adequate BP & HR: stable & adequate Hydration State: stable & adequate Neuraxial Anesthesia: was administered, sensory block is resolving Anesthetic Complications: no major complications apparent Pt arrived preop with a HR in the low 100s. Intraop and in PACU, pt continues to have a HR between 100 and 110. Patient denies palpitations, CP or SOB, and is easily arousable. Ordered for continuous pulse oximetry on the floor.
[2017-05-19] MEDS: D5W AND 1/2NSS + 20MEQ KCL 1,000 ML IV SCH (16:13)
[2017-05-19] MEDS: PAROXETINE 30 MG TAB PO SCH (17:33)
[2017-05-19] MEDS: FERROUS GLUCONATE 324 MG TAB PO SCH (17:56)
[2017-05-19] MEDS: CEFAZOLIN IV 1,000 MG in DEXTROSE 5% 50ML 50 ML IV SCH (19:49)
[2017-05-19] MEDS: SENNA 8.6 MG TAB PO SCH (20:38)
[2017-05-19] MEDS: DOCUSATE SODIUM 100 MG CAP PO SCH (20:38)
[2017-05-19] MEDS: PRAVASTATIN SOD 40 MG TAB PO SCH (20:38)
[2017-05-19] MEDS: ASPIRIN 81 MG ECTAB PO SCH (20:38)
[2017-05-19 22:59] LABS: MANUAL MICROSCOPIC REQUIRED? NO; REVIEW REQ? NO; URINE APPEARANCE CLOUDY (CLEAR); URINE BILIRUBIN NEG (NEG); URINE COLOR YELLOW; URINE EPITHELIAL CELL AUTO 0-5 /lpf (0-5); URINE NITRITE POS (NEG); URINE SPECIFIC GRAVITY 1.016 (1.000-1.030); UROBILINOGEN NEG (NEG)
[2017-05-19] MEDS: HYDROCODONE/ACETAMOPHEN 5/325MG TAB PO PRN (23:29)
[2017-05-20] MEDS: D5W AND 1/2NSS + 20MEQ KCL 1,000 ML IV SCH ×2 (01:57→10:22)
[2017-05-20 02:45] VITALS: BP 127/64; PULSE 101; TEMP 36.4; O2SAT 92
[2017-05-20] MEDS: CEFAZOLIN IV 1,000 MG in DEXTROSE 5% 50ML 50 ML IV SCH (04:20)
[2017-05-20 06:08] LABS: HEMATOCRIT 35.1 % (37-47); MEAN CELL VOLUME 92.6 fL (80-100); MEAN CORPUSCULAR HEMOGLOBIN 30.9 pg (25-34); MEAN CORPUSCULAR HGB CONC 33.3 g/dl (32-36); MEAN PLATELET VOLUME 10.4 fL (7.4-10.4); PLATELET COUNT 226 K/uL (130-400); RED BLOOD COUNT 3.79 M/uL (4.2-5.4); WHITE BLOOD COUNT 14.89 K/uL (4.8-10.8)
[2017-05-20 06:39] LABS: BUN/CREATININE RATIO 18.1 (10-20); CALCIUM 8.9 mg/dl (8.5-10.1); CREATININE 0.88 mg/dl (0.60-1.20); POTASSIUM 4.5 mmol/L (3.5-5.1)
[2017-05-20 07:55] VITALS: BP 136/73; PULSE 86; TEMP 36.6; O2SAT 93
[2017-05-20] MEDS: PAROXETINE 30 MG TAB PO SCH (07:55)
[2017-05-20] MEDS: CHOLECALCIFEROL 1000 INTER.UNIT TAB PO SCH (07:55)
[2017-05-20] MEDS: PANTOprazole SOD 40 MG TAB PO SCH (07:55)
[2017-05-20] MEDS: ASPIRIN 81 MG ECTAB PO SCH ×2 (07:56→21:05)
[2017-05-20] MEDS: FERROUS GLUCONATE 324 MG TAB PO SCH ×3 (07:56→17:58)
[2017-05-20] MEDS: DOCUSATE SODIUM 100 MG CAP PO SCH ×2 (07:56→21:05)
[2017-05-20] MEDS: VERAPAMIL HCL 180 MG TABCR PO SCH (07:56)
[2017-05-20] MEDS: MULTIVITAMIN TAB PO SCH (07:56)
--- NOTE | 2017-05-20 08:01 | Orthopedic Progress Note ---
Orthopedic Progress Note Date of Service May 20, 2017. Subjective Post OP Day: 1 Reports: feeling well Objective N/V intact, dressing C/D/I (Hemovac in place), toes mobile Date Time Temp Pulse Resp B/P (MAP) Pulse Ox O2 Delivery O2 Flow Rate FiO2 05/20/17 02:45 36.4 101 17 127/64 (85) 92 Room Air 05/19/17 23:15 Room Air 05/19/17 23:00 37.0 103 17 116/76 (89) 95 Room Air 05/19/17 21:47 91 Room Air 05/19/17 18:40 93 Nasal Cannula 2.0 05/19/17 18:26 36.7 102 16 117/69 (85) 94 Nasal Cannula 3.0 05/19/17 17:29 36.6 105 16 114/71 (85) 95 Oxymask 4.0 05/19/17 16:32 36.6 101 16 114/74 (87) 95 Oxymask 4.0 05/19/17 16:05 95 Mask 4.0 05/19/17 16:00 36.6 107 20 111/60 (77) 94 Mask 3.0 05/19/17 15:57 92 4.0 05/19/17 15:30 36.4 110 20 104/61 (75) 92 Mask 4.0 05/19/17 15:30 Mask 4.0 05/19/17 15:16 109 17 103/55 95 05/19/17 15:16 108 17 05/19/17 15:11 108 16 95 05/19/17 15:11 109 16 05/19/17 15:10 110/60 05/19/17 15:06 111 18 108/57 94 05/19/17 15:06 111 18 05/19/17 15:05 36.9 05/19/17 15:01 110 18 05/19/17 15:01 110 18 119/58 95 05/19/17 14:56 110 17 05/19/17 14:56 110 17 95 05/19/17 14:55 110/57 05/19/17 14:53 110 19 05/19/17 14:53 110 19 95 05/19/17 14:50 110/53 05/19/17 14:48 110 17 05/19/17 14:48 110 17 93 7/20/17 14:46 115/56 7/20/17 14:43 109 19 94 7/20/17 14:43 110 19 7/20/17 14:40 106/54 7/20/17 14:38 112 21 94 7/20/17 14:38 112 21 7/20/17 14:35 104/53 7/20/17 14:33 111 19 7/20/17 14:33 111 19 92 7/20/17 14:32 112 17 94 7/20/17 14:32 112 17 7/20/17 14:30 98/53 7/20/17 14:27 110 19 93 7/20/17 14:27 111 19 7/20/17 14:25 103/58 7/20/17 14:22 109 19 91 7/20/17 14:22 110 19 7/20/17 14:21 109 21 7/20/17 14:21 109 21 104/52 92 720/17 14:16 110 19 7/20/17 14:16 110 19 89 7/20/17 14:15 109/52 7/20/17 14:11 109 28 720/17 14:11 110 28 92 7/20/17 14:11 37.7 720/17 14:10 24 720/17 14:10 110 24 102/50 92 7/20/17 14:06 107/53 720/17 14:05 109 17 720/17 14:05 109 17 86 7/20/17 14:01 107/55 720/17 14:00 109 20 720/17 14:00 109 20 92 7/20/17 13:59 108 19 93 7/20/17 13:59 108 19 7/20/17 13:55 108/54 7/20/17 13:54 108 18 93 7/20/17 13:54 108 18 7/20/17 13:50 103/52 7/20/17 13:49 107 17 92 7/20/17 13:49 106 17 7/20/17 13:48 108 23 92 7/20/17 13:48 107 23 7/20/17 13:45 104/57 7/20/17 13:43 107 15 720/17 13:43 106 15 95 7/20/17 13:40 103/55 05/19/17 13:38 106 20 05/19/17 13:38 105 20 90 05/19/17 13:35 109/56 05/19/17 13:33 105 16 91 05/19/17 13:33 105 16 05/19/17 13:32 103 17 93 05/19/17 13:32 102 17 05/19/17 13:30 109/59 05/19/17 13:27 104 17 92 05/19/17 13:27 104 17 05/19/17 13:25 93/53 05/19/17 13:22 101 13 94 05/19/17 13:22 101 13 05/19/17 13:20 108/55 05/19/17 13:17 101 18 92 05/19/17 13:17 101 18 05/19/17 13:16 103 20 05/19/17 13:16 103 20 103/50 94 05/19/17 13:11 101 16 05/19/17 13:11 101 16 93 05/19/17 13:10 101 16 96/52 92 05/19/17 13:10 102 16 05/19/17 13:06 105/57 05/19/17 13:05 101 15 95 05/19/17 13:05 101 15 05/19/17 13:00 100 16 05/19/17 13:00 101 16 112/54 93 05/19/17 12:55 99 12 102/57 95 05/19/17 12:55 99 12 05/19/17 12:51 117/63 05/19/17 12:50 37.2 102 14 117/63 98 Mask 10 05/19/17 12:50 101 25 98 05/19/17 12:50 101 25 05/19/17 09:21 36.8 100 20 156/85 92 Room Air Laboratory Results 24 Hours: Test 05/19/17 09:51 05/20/17 05:50 Prothromb Time International Ratio 1.0 Prothrombin Time 11.1 SECONDS Hematocrit 35.1 % Hemoglobin 11.7 g/dL Assessment & Plan Assessment: 76 yo female stable POD #1 s/p right TKA Plan: 1. Med management 2. DVT prophylaxis- ASA, SCDs 3. PT/OT 4. D/C planning- pt interested in [facility]
--- NOTE | 2017-05-20 08:04 | Discharge Instructions ---
Discharge Instructions Date of Service May 20, 2017. Admission Reason for Admission: Right Knee Osteoarthritis Discharge Discharge Diagnosis / Problem: Right knee arthritis Discharge Goals Goal(s): Decrease discomfort, Improve function Activity Recommendations Activity Limitations: as noted below Weightbearing Status: Right weightbearing (as tolerated) . Instructions / Follow-Up Instructions / Follow-Up ACTIVITY RECOMMENDATIONS: SELF CARE INSTRUCTIONS AFTER TOTAL KNEE REPLACEMENT A. You may need to continue a physical therapy program after discharge from the hospital. There are several options available to you. Your doctor will assist you in selecting the best one for you. 1. An out-patient facility 2 to 3 times a week for therapy or home therapy. 2. Continue working on all exercises taught to you in the hospital. Your goals should be to increase bending of your knee to 90 degrees and beyond and to fully straighten your knee. B. You may progress at your own pace from walking with a walker or crutches to a cane; then to no assistive devices. C. Make walking a part of your daily routine. Be up as much as comfortable with rest periods throughout the day. Rest with leg elevation is very important. Use the ice wrap frequently for the first 3-4 weeks. D. There are no restrictions on activities. You may ride in a car, shop, participate in registered safety engineer and all social activities. E. Wear the long elastic stockings (DELIA hose) 20 hours a day for 2 weeks after surgery. They can be removed several times a day for laundering and for a bath. F. You may shower, no tub baths until cleared by your doctor. SPECIAL CARE INSTRUCTIONS: VERY IMPORTANT TO READ AND REVIEW A. There are a few signs you need to watch for after you are home. Call [facility] if you notice any of the followin. Increased severe knee pain. Some pain is expected especially when you exercise. 2. Increased swelling in your leg or knee; pain or swelling of the calf muscle in either lower leg. 3. Any fluid drainage from the incision. 4. Shortness of breath or chest pain. B. Please call [facility] at if you have any concerns or questions about your operation or recovery. The doctor or his nurse will return your call promptly. C. You must take antibiotics before dental work, bladder, bowel or other surgery. Your doctor will provide you with a permanent care to carry describing this precaution. IMPORTANT: * REMEMBER TO TAKE ASPIRIN, 81 MG, TWICE DAILY FOR 4 WEEKS UNLESS OTHERWISE DIRECTED. THIS IS YOUR BLOOD THINNER. * HIGH RISK PATIENTS MAY BE PRESCRIBED A STRONGER BLOOD THINNER. THIS WILL BE PROVIDED AT DISCHARGE. * CALL IF INCREASED PAIN, REDNESS, DRAINAGE OR FEVER GREATER THAT 101. * WEAR DELIA HOSE 20 HOURS PER DAY FOR 2 WEEKS. Silverlon- This is a large adhesive bandage that contains silver ions. This helps your incision heal by fighting off bacteria and protecting it from the outside environment. You are permitted to shower with this dressing. This will remain on your incision for 7 days and then should be removed. Some visible blood or drainage through the dressing window is normal. If there is significant drainage or leaking noted before the 7 days notify your doctor's office immediately. Once removed, keep incision clean and dry. If there is any drainage or redness noted, please call your surgeon. FOLLOW UP VISIT: If appointment is not already scheduled: Please call [facility] to make a follow-up appointment for 2 weeks after your surgery at . Current Hospital Diet Patient's current hospital diet: Regular Diet Discharge Diet Recommended Diet: Regular Diet Procedures Procedures Performed: Right Total Knee Arthroplasty, Cemented femoral was size 3 tibial size 3 tibial Pauling 9 patella size 33 Pending Studies Studies pending at discharge: no Laboratory Results Hemoglobin A1c Test 02/21/17 10:53 Range/Units Estimated Average Glucose 114 mg/dl Hemoglobin A1c 5.6 4.5-5.6 % Medical Emergencies . Who to Call and When: Medical Emergencies: If at any time you feel your situation is an emergency, please call 911 immediately. . Non-Emergent Contact Non-Emergency issues call your: Surgeon Call Non-Emergent contact if: temperature is above 101.5, your pain is not controlled, wound has increased drainage, wound has increased redness . "Provider Documentation" section prepared by Jonny Parekh PA-C. . VTE Core Measure Inpt VTE Proph given/why not?: Other Anticoagulation (ASA 81mg bid), T.E.D. Stockings, SCD's [place] Drug Monitoring Program Search Results: patient reviewed within database, no issues identified
--- NOTE | 2017-05-20 08:13 | Anesthesiology Progress Note ---
Anesthesia Post Op Note Date & Time May 20, 2017 at 08:12 Vital Signs Pain Intensity: 5.0 Vital Signs Past 12 Hours Date Time Temp Pulse Resp B/P (MAP) Pulse Ox O2 Delivery O2 Flow Rate FiO2 05/20/17 07:40 Room Air 05/20/17 02:45 36.4 101 17 127/64 (85) 92 Room Air 05/19/17 23:15 Room Air 05/19/17 23:00 37.0 103 17 116/76 (89) 95 Room Air 05/19/17 21:47 91 Room Air Notes Mental Status: alert / awake / arousable, participated in evaluation Pt Amnestic to Procedure: Yes Nausea / Vomiting: adequately controlled Pain: adequately controlled Airway Patency, RR, SpO2: stable & adequate BP & HR: stable & adequate Hydration State: stable & adequate Neuraxial Anesthesia: sensory block resolved Anesthetic Complications: no major complications apparent
[2017-05-20] MEDS: HYDROCODONE/ACETAMOPHEN 5/325MG TAB PO PRN ×2 (08:31→23:24)
[2017-05-20] MEDS: TRAMADOL HCL 50 MG TAB PO PRN ×4 (10:21→20:31)
[2017-05-20] MEDS: CIPROFLOXACIN 500 MG TAB PO SCH ×2 (10:21→21:05)
[2017-05-20 12:02] VITALS: BP 126/71; PULSE 88; TEMP 36.4; O2SAT 96
[2017-05-20] MEDS: KETOROLAC TROMETHAMINE 15 MG/ML VIAL IV PRN (12:07)
[2017-05-20] MEDS: RIZATRIPTAN BENZOATE 10 MG TAB PO PRN (16:27)
[2017-05-20 16:33] VITALS: BP 142/71; PULSE 84; TEMP 36.4; O2SAT 93
[2017-05-20] MEDS: SENNA 8.6 MG TAB PO SCH (21:04)
[2017-05-20] MEDS: PRAVASTATIN SOD 40 MG TAB PO SCH (21:05)
[2017-05-20 23:42] VITALS: BP 159/81; PULSE 108; TEMP 37; O2SAT 91
[2017-05-21 02:24] VITALS: BP 134/81
[2017-05-21] MEDS: HYDROCODONE/ACETAMOPHEN 5/325MG TAB PO PRN ×3 (05:17→17:06)
[2017-05-21 06:29] VITALS: BP 139/72; PULSE 106; TEMP 36.8; O2SAT 93
[2017-05-21] MEDS: KETOROLAC TROMETHAMINE 15 MG/ML VIAL IV PRN (06:48)
[2017-05-21] MEDS: VERAPAMIL HCL 180 MG TABCR PO SCH (07:53)
[2017-05-21] MEDS: CIPROFLOXACIN 500 MG TAB PO SCH ×2 (07:53→20:54)
[2017-05-21] MEDS: FERROUS GLUCONATE 324 MG TAB PO SCH ×3 (07:53→16:03)
[2017-05-21] MEDS: PANTOprazole SOD 40 MG TAB PO SCH (07:54)
[2017-05-21] MEDS: CHOLECALCIFEROL 1000 INTER.UNIT TAB PO SCH (07:54)
[2017-05-21] MEDS: PAROXETINE 30 MG TAB PO SCH (07:54)
[2017-05-21] MEDS: MULTIVITAMIN TAB PO SCH (07:54)
[2017-05-21] MEDS: TRAMADOL HCL 50 MG TAB PO PRN ×3 (08:00→20:13)
[2017-05-21] MEDS: DOCUSATE SODIUM 100 MG CAP PO SCH ×2 (09:11→20:54)
[2017-05-21] MEDS: ASPIRIN 81 MG ECTAB PO SCH ×2 (09:11→20:54)
[2017-05-21] MEDS: RIZATRIPTAN BENZOATE 10 MG TAB PO PRN (09:26)
--- NOTE | 2017-05-21 10:08 | Orthopedic Progress Note ---
Orthopedic Progress Note Date of Service May 21, 2017. Subjective Reports: feeling well, Denies: complaints, chest pain, SOB, nausea / vomiting, light headedness, calf pain Additional Notes: C/O minor neck pain and stiffness. Knee pain well controlled. Objective calves soft nontender, N/V intact, capillary refill less than 2 sec., incision C /D/I, A&O x3, toes mobile Minor drainage from incision site. Well coapted with kirsten. No evidence of infection or erythema. Date Time Temp Pulse Resp B/P (MAP) Pulse Ox O2 Delivery O2 Flow Rate FiO2 05/21/17 06:29 36.8 106 14 139/72 (94) 93 Room Air 05/21/17 02:24 134/81 (98) 05/20/17 23:42 37.0 108 18 159/81 (107) 91 Room Air 05/20/17 23:15 Room Air 05/20/17 16:33 36.4 84 18 142/71 (94) 93 Room Air 05/20/17 15:20 Room Air 05/20/17 12:02 36.4 88 16 126/71 (89) 96 Room Air Assessment & Plan Assessment: 76 yo female stable POD #2 s/p right TKA. UTI - currently treated with Cipro 500mg PO BID for 7 days Plan: 1. Med management 2. DVT prophylaxis- ASA, SCDs 3. PT/OT 4. D/C planning- pt interested in [facility] and should D/C there later today 5. Cont PO Cipro 500mg BID for 7 days total therapy 6. F/U w/ [facility] 13-15 days post op. Discharge Planning Discharge Planning: rehab hospital DVT Prophylaxis: TEDs, ASA
[2017-05-21] MEDS ORDERED: OXYSR10 PO (10:21)
[2017-05-21] MEDS ORDERED: MULT-890 PO (10:21)
[2017-05-21] MEDS ORDERED: HYDR-5688 PO (10:21)
[2017-05-21] MEDS ORDERED: CPR500 PO (10:21)
[2017-05-21] MEDS ORDERED: ASPEC81 PO (10:21)
[2017-05-21] MEDS ORDERED: ONDA8TAB6 PO (10:21)
[2017-05-21] MEDS ORDERED: FRRG PO (10:21)
[2017-05-21 15:44] VITALS: BP 118/66; PULSE 82; TEMP 36.7; O2SAT 93
[2017-05-21] MEDS: SENNA 8.6 MG TAB PO SCH (20:54)
[2017-05-21] MEDS: PRAVASTATIN SOD 40 MG TAB PO SCH (20:54)
[2017-05-21 23:11] VITALS: BP 127/65; PULSE 101; TEMP 36.9; O2SAT 93
[2017-05-22] MEDS: HYDROCODONE/ACETAMOPHEN 5/325MG TAB PO PRN ×3 (01:30→09:30)
[2017-05-22] MEDS: TRAMADOL HCL 50 MG TAB PO PRN (02:55)
[2017-05-22 07:24] VITALS: BP 125/74; PULSE 107; TEMP 37; O2SAT 90
--- NOTE | 2017-05-22 08:30 | Orthopedic Progress Note ---
Orthopedic Progress Note Date of Service May 22, 2017. Subjective Post OP Day: 3 Reports: feeling well, pain controlled w PO medications, Denies: chest pain, SOB , nausea / vomiting, light headedness, calf pain Objective calves soft nontender, N/V intact, capillary refill less than 2 sec., incision C /D/I, A&O x3, toes mobile Date Time Temp Pulse Resp B/P (MAP) Pulse Ox O2 Delivery O2 Flow Rate FiO2 05/22/17 07:26 Room Air 05/22/17 07:24 37.0 107 17 125/74 (91) 90 Room Air 05/21/17 23:45 Room Air 05/21/17 23:11 36.9 101 16 127/65 (85) 93 Room Air 05/21/17 15:44 36.7 82 16 118/66 (83) 93 Room Air 05/21/17 15:40 Room Air Assessment & Plan Assessment: 76 yo female stable POD #3 s/p right TKA. UTI - currently treated with Cipro 500mg PO BID for 7 days Plan: 1. Med management 2. DVT prophylaxis- ASA, SCDs 3. PT/OT 4. D/C planning- pt interested in [facility], awaiting bed hopefully today 5. Cont PO Cipro 500mg BID for 7 days total therapy 6. F/U w/ [facility] 13-15 days post op. Inhouse Planning Pain Management: Saul Grissom DVT Prophylaxis: TEDs, SCDs, ASA Discharge Planning Discharge Planning: rehab hospital DVT Prophylaxis: TEDs, SCDs, ASA Therapy: Physical Therapy
[2017-05-22] MEDS: DOCUSATE SODIUM 100 MG CAP PO SCH (08:48)
[2017-05-22] MEDS: CIPROFLOXACIN 500 MG TAB PO SCH (08:48)
[2017-05-22] MEDS: ASPIRIN 81 MG ECTAB PO SCH (08:48)
[2017-05-22] MEDS: PANTOprazole SOD 40 MG TAB PO SCH (08:48)
[2017-05-22] MEDS: MULTIVITAMIN TAB PO SCH (08:48)
[2017-05-22] MEDS: FERROUS GLUCONATE 324 MG TAB PO SCH (08:48)
[2017-05-22] MEDS: CHOLECALCIFEROL 1000 INTER.UNIT TAB PO SCH (08:49)
[2017-05-22] MEDS: PAROXETINE 30 MG TAB PO SCH (08:49)
[2017-05-22] MEDS: VERAPAMIL HCL 180 MG TABCR PO SCH (08:49)
[2017-05-22 10:23] VITALS: BP 125/74; PULSE 107; TEMP 37; O2SAT 90
--- NOTE | 2017-05-24 20:26 | DISCHARGE SUMMARY ---
DISCHARGE DIAGNOSIS: Degenerative joint disease, right knee. SECONDARY DIAGNOSES: Diverticulosis, hypercholesterolemia, history of migraine headaches, osteoporosis, history of urinary tract infection, depression. CONSULTS: None. COMPLICATIONS: None. PROCEDURE: Right total knee arthroplasty performed by Dr. Skaggs on 05/19/2017. BRIEF HISTORY: As dictated in the history and physical. HOSPITAL SUMMARY: The patient was admitted on the above noted date and had the above noted surgery performed which she tolerated well. On the first postoperative day, the patient was feeling well and had no complaints, neurovascularly was intact. Dressings clean, dry and intact. Toes were mobile. Vital signs were stable. The patient was afebrile. Hemoglobin was 11.7. The patient was started on physical therapy protocol and continued on DVT prophylaxis and pain management. Plans were for her to go to [facility], pending clearance. By the second postoperative day, the patient was feeling well. She complained of some minor neck pain and stiffness. Knee pain was well controlled. Calves were soft and nontender, neurovascularly intact. Incision was clean, dry and intact. Toes were mobile. She had moderate drainage from the incision site. The incision site was appearing benign otherwise and there was no evidence of infection or erythema. Vital signs were stable. She was afebrile. She had some slight tachycardia but was always remaining stable and was continued on her protocol. She had been found to have a UTI and was being treated with Cipro 500 mg p.o. b.i.d. for 7 days. By 05/22/2017, the patient was remaining stable and feeling well. Pain was controlled, incision was benign. Toes were mobile. She was progressing with her physical therapy and it was felt she could be discharged to [facility] for further physical therapy and care. For further review, please see chart. LAB AND X-RAY DATA: As per chart. DISCHARGE INSTRUCTIONS: The patient was discharged to [facility] on 05/22/2017 in stable condition. DIET: Regular. ACTIVITY: Weightbearing as tolerated, right lower extremity. Follow TKA instruction sheets and special care instructions as noted. Follow up with Dr. Skaggs in 2 weeks. The patient to call for an appointment if one has not been made for you. DISCHARGE MEDICATIONS: Aspirin 81 mg p.o. b.i.d. for 30 days, ciprofloxacin 500 mg p.o. b.i.d. for 6 days, ferrous gluconate 324 mg p.o. t.i.d. for 30 days, Lewis[place] 5/325 1-2 tabs p.o. q. 4 hours p.r.n., multivitamin 1 tab p.o. q.a.m., Zofran 8 mg p.o. q. 8 hours p.r.n. nausea, OxyContin 10 mg p.o. b.i.d. and resume home meds as listed in discharge instruction section. Stop taking Tylenol Arthritis extended release and Lortab.
--- NOTE | 2017-06-06 15:15 | OPERATIVE REPORT ---
DATE OF OPERATION: 05/19/2017 ADDENDUM RN PEDIATRIC: JOHNINE Robertson. Mr. Moctezumajosé miguel was essential throughout all portions of the case including prepping, draping, surgical exposure, culinary assistant, wound closure and dressing application. I attest to the content of the Intraoperative Record and any orders documented therein. Any exception s are noted below.
== END 2017-05-22 11:09 | DRG 470 ==
LOC: C.ACU 08:56 → C.3E 10:14 → ENRESERV 15:11
PROC: 0SRC0J9 Replacement of Right Knee Joint with Synthetic Substitute, Cemented, Open Approach (ICD-10-PCS; principal; 2017-05-19 10:45)
DX: M17.11 Unilateral primary osteoarthritis, right knee (principal); N39.0 Urinary tract infection, site not specified; E78.00 Pure hypercholesterolemia, unspecified; G43.909 Migraine, unspecified, not intractable, without status migrainosus; M81.0 Age-related osteoporosis without current pathological fracture; K44.9 Diaphragmatic hernia without obstruction or gangrene; K21.9 Gastro-esophageal reflux disease without esophagitis; M54.5 Low back pain; F41.9 Anxiety disorder, unspecified; F32.9 Major depressive disorder, single episode, unspecified; E66.9 Obesity, unspecified; Z68.27 Body mass index [BMI] 27.0-27.9, adult; Z79.891 Long term (current) use of opiate analgesic; Z79.899 Other long term (current) drug therapy

== ENCOUNTER → 2017-07-28 | Outpatient (CLI) | payer OTHER, BC ==
[~2017-07-28] MED LIST changes: -ACET1TAB84 PO; -ACETAMINOPHEN 500 MG TAB PO SCH; +ASPEC81 PO; -ATROPINE SULFATE 0.1 MG/ML 5ML SYR IV PRN; -BUPIVACAINE 0.25% 30 ML VIAL ONE; -BUPIVACAINE 0.5 % 5 MG/1 ML PF 10ML VIAL ONE; -CEFAZOLIN 2000 MG/60 ML D5W 60 ML IV SCH; +CPR500 PO; -CeleBREX 200 MG CAP PO SCH; -DEXAMETHASONE 4 MG TAB PO SCH; -EpHEDrine SULFATE INJ 50 MG/ML AMP IV PRN; -FAMOTIDINE 20 MG TAB PO SCH; +FRRG PO; -GABAPENTIN 300 MG CAP PO SCH; -HYDR-4330 PO; +HYDR-5688 PO; -LACTATED RINGER'S 1000ML 1,000 ML IV SCH; -LACTATED RINGER'S 1000ML 500 ML IV ONE; -METOCLOPRAMIDE HCL 10 MG TAB PO SCH; +MULT-890 PO; +ONDA8TAB6 PO; -ONDANSETRON INJ 2 MG/ML 2 ML VIAL IV PRN; +OXYSR10 PO; -ROPIVACAINE 5MG/ML 30 ML 150 MG, BUPIVACAINE/EPINEPHR 0.5% MPF 30 ML, KETOROLAC TROMETH... INFIL SCH
== END | disposition home or self-care (01) ==
LOC: C.MAMM 11:20
PROVIDERS: ATTEND Internal Medicine
DX: S32.010A Wedge compression fracture of first lumbar vertebra, initial encounter for closed fracture (principal); X58.XXXA Exposure to other specified factors, initial encounter; M85.851 Other specified disorders of bone density and structure, right thigh; M85.852 Other specified disorders of bone density and structure, left thigh

== ENCOUNTER → 2017-09-21 | Outpatient (CLI) | payer OTHER, BC ==
[~2017-09-21] MED LIST changes: -BND25 PO; +DIPH25CA5 PO; +PANT40TA2 PO; -PRT/40 PO
[2017-09-21 17:06] LABS: ALT/SGPT 24 U/L (12-78); BLOOD UREA NITROGEN 19 mg/dl (7-18); BUN/CREATININE RATIO 24.1 (10-20); CARBON DIOXIDE 26 mmol/L (21-32); CHLORIDE 107 mmol/L (98-107); CREATININE 0.79 mg/dl (0.60-1.20); GLUCOSE 117 mg/dl (70-99); POTASSIUM 3.9 mmol/L (3.5-5.1); SODIUM 140 mmol/L (136-145)
[2017-09-21 17:09] LABS: ALB/GLOB RATIO 1.1 (0.9-2); ALKALINE PHOSPHATASE 68 U/L (45-117); AST/SGOT 14 U/L (15-37)
[2017-09-22 06:50] LABS: ESTIMATED AVERAGE GLUCOSE 108 mg/dl; HA1C FLAG Normal (Normal)
== END | disposition home or self-care (01) ==
LOC: C.LABBFT 12:56
PROVIDERS: ATTEND Internal Medicine
DX: R73.01 Impaired fasting glucose (principal); E55.9 Vitamin D deficiency, unspecified

== ENCOUNTER → 2017-09-26 | Outpatient (CLI) | payer OTHER, BC ==
[2017-09-26 12:41] LABS: CHOLESTEROL/HDL RATIO 2.8
== END | disposition home or self-care (01) ==
LOC: C.LABBFT 10:31
PROVIDERS: ATTEND Internal Medicine
DX: E78.00 Pure hypercholesterolemia, unspecified (principal)

== ENCOUNTER → 2017-11-02 | Outpatient (CLI) | payer OTHER, BC ==
--- NOTE | 2017-11-03 12:46 | MAMMOGRAPHY REPORT ---
BILATERAL DIGITAL SCREENING MAMMOGRAM TOMOSYNTHESIS WITH CAD: 11/02/2017 CLINICAL HISTORY: Routine screening. TECHNIQUE: Breast tomosynthesis in addition to standard 2D mammography was performed. Current study was also evaluated with a Computer Aided Detection (CAD) system. COMPARISON: Comparison is made to exams dated: 08/30/2016 mammogram, 08/13/2015 mammogram, 4 mammogram, 08/13/2013 mammogram, 07/24/2012 mammogram - [facility], and 07/23/2009. BREAST COMPOSITION: There are scattered areas of fibroglandular density in both breasts. FINDINGS: There are scattered benign rim and coarse calcifications in the breasts. No suspicious mas s, architectural distortion or cluster of microcalcifications is seen. IMPRESSION: ACR BI-RADS CATEGORY 1: NEGATIVE There is no mammographic evidence of malignancy. A 1 year screening mammogram is recommended. The pa tient will receive written notification of the results. Approximately 10% of breast cancers are not detected with mammography. A negative mammographic report should not delay biopsy if a clinically suggestive mass is present. Misty Bajwa M.D. ay/:11/02/2017 15:43:25 Attending Technologist: Gayle Bauer RT(R)(M), [facility] Key Account Manager: Earline Snider RT(R)(M), [facility] letter sent: Normal 1/2 BI-RADS Code: ACR BI-RADS Category 1: Negative
== END | disposition home or self-care (01) ==
LOC: C.MAMM 12:17
PROVIDERS: ATTEND Internal Medicine
DX: Z12.31 Encounter for screening mammogram for malignant neoplasm of breast (principal)

== ENCOUNTER → 2017-12-09 | Outpatient (CLI) | payer OTHER, BC ==
[~2017-12-09] MED LIST changes: -ONDA8TAB6 PO
[2017-12-09 17:16] LABS: BLOOD UREA NITROGEN 23 mg/dl (7-18); CREATININE 0.78 mg/dl (0.60-1.20)
== END | disposition home or self-care (01) ==
LOC: C.LABBFT 13:17
PROVIDERS: ATTEND Physician Assistant Medical
DX: M51.36 Other intervertebral disc degeneration, lumbar region (principal)

== ENCOUNTER → 2017-12-12 | Outpatient (CLI) | payer OTHER, BC ==
[~2017-12-12] MED LIST changes: +OPTIRAY 320 IV PRN
--- NOTE | 2017-12-12 13:18 | DIAGNOSTIC IMAGING REPORT ---
LUMBAR SPINE WITH CLINICAL HISTORY: 77 years-old Female presenting with M51.36 Disc degeneration, lumbar* pt will have labs done prior t. TECHNIQUE: Multidetector CT of the lumbar spine was performed after the administration of intravenous contrast. IV contrast: 92 mL of Optiray 320. A dose lowering technique was used consistent with the principles of ALARA (as low as reasonably achievable). COMPARISON: Plain radiographs from 02/24/2017. CT DOSE (mGy.cm): The estimated cumulative dose is 1098.28 mGy.cm. FINDINGS: Drink Box Mechanic topogram: Total right hip arthroplasty. Cholecystectomy clips. Severe kyphotic deformity at L1 secondary to new severe compression deformity of L1. Significant retropulsion of fracture fragments, which are displaced by over 8 mm posteriorly. This significantly effaces the thecal sac. Anteropulsion of fracture fragments also noted. There is pseudoankylosis of fracture fragments with the T12 vertebral body laterally (series 200 and image 30). No significant abnormal soft tissue to suggest underlying neoplasm. There is resulting overall retrolisthesis of T12 relative to L2. Mild deformity of the anterior aspect of the inferior endplate of T12 with associated sclerosis suggesting chronicity. Remaining lumbar levels demonstrate normal height and alignment. Multiple prominent Schmorl's nodes noted. Intervertebral discs demonstrate calcification likely degenerative and several disc bulges most probably and L4-5 and L5-S1. Disc heights are maintained. Facet arthropathy most notable in the lower lumbar spine. This results in mild osseous neural foraminal narrowing at L5-S1. Osteopenia. Paraspinal musculature within normal limits. No evidence of hematoma. Nonspecific edema in the subcutaneous tissues of the lumbar region. Atherosclerosis of the normal caliber abdominal aorta. IMPRESSION: 1. Severe compression deformity of L1 with significant retropulsion of fracture fragments narrowing the spinal canal. Impingement of the spinal cord at this level may be present but is not well assessed on CT. This deformity however appears chronic though new since January 2017. This deformity results in focal kyphosis. 2. Osteopenia. 3. Mild multilevel degenerative changes most prominently in the lower lumbar spine. Mild osseous neural foraminal narrowing at L5-S1. The report will be called/faxed according to standard departmental protocol. Electronically signed by: Audi Castillo M.D. 12/12/2017 1:17 PM Dictated Date/Time: 12/12/2017 1:11 PM
== END | disposition home or self-care (01) ==
LOC: C.CTS 12:49
PROVIDERS: ATTEND Physician Assistant Medical
DX: M51.36 Other intervertebral disc degeneration, lumbar region (principal); M85.88 Other specified disorders of bone density and structure, other site

== ENCOUNTER 2018-01-05 07:39 | Inpatient (IN) | payer OTHER, BC ==
[2017-12-26 09:15] VITALS: BMI 27.0
--- NOTE | 2017-12-26 09:48 | PAT Medication Instructions ---
Service Date Dec 26, 2017. Current Home Medication List Calcium Carbonate-Vitamin D (Calcium 500 + D), 1 TAB PO BID Cholecalciferol (Vitamin D3), 1 TAB PO QAM Clonazepam (Klonopin), 0.5 MG PO DAILY PRN for Anxiety Docusate Sodium (Stool Softener), 100 MG PO DAILY PRN for CONSTIPATION Melatonin (Melatonin), Unknown Dose PO HS Multivitamin (Multivitamin), 1 TAB PO QAM Pantoprazole (Pantoprazole Sodium), 40 MG PO QAM Paroxetine HCl (Paroxetine), 2 TAB PO QAM Pravastatin Sod (Pravastatin Sodium), 40 MG PO HS Rizatriptan Benzoate (Maxalt), 10 MG PO PRN Tramadol (Ultram), 50 MG PO UD PRN for Pain Verapamil Hcl (Calan Sr Ext Rel), 180 MG PO QAM Medication Instructions For Your Scheduled Surgery - Hold the following medications the morning of surgery: Calcium Carbonate-Vitamin D (Calcium 500 + D), 1 TAB PO BID Cholecalciferol (Vitamin D3), 1 TAB PO QAM Multivitamin (Multivitamin), 1 TAB PO QAM Verapamil Hcl (Calan Sr Ext Rel), 180 MG PO QAM - Take the following medications the morning of surgery with a sip of water: Clonazepam (Klonopin), 0.5 MG PO DAILY PRN for Anxiety (if needed) Tramadol (Ultram), 50 MG PO UD PRN for Pain (okay to take up to 4 hours prior to surgery if needed) Rizatriptan Benzoate (Maxalt), 10 MG PO PRN (if needed) Paroxetine HCl (Paroxetine), 2 TAB PO QAM Pantoprazole (Pantoprazole Sodium), 40 MG PO QAM - Take the following medications as scheduled the night before surgery: Clonazepam (Klonopin), 0.5 MG PO DAILY PRN for Anxiety (if needed) Tramadol (Ultram), 50 MG PO UD PRN for Pain (if needed) Rizatriptan Benzoate (Maxalt), 10 MG PO PRN (if needed) Pravastatin Sod (Pravastatin Sodium), 40 MG PO HS Melatonin (Melatonin), Unknown Dose PO HS Docusate Sodium (Stool Softener), 100 MG PO DAILY PRN for CONSTIPATION (if needed) If you have any questions please call us at [phone] or [phone] or [phone]
[2017-12-26 10:37] LABS: BASO % 0.2 %; BASO ABS # 0.01 K/uL (0-0.2); EOS % 1.3 %; EOS ABS # 0.08 K/uL (0-0.5); HEMATOCRIT 42.5 % (37-47); HEMOGLOBIN 14.3 g/dL (12.0-16.0); IG# 0.01 K/uL (0.00-0.02); LYMPH % 27.4 %; LYMPH ABS # 1.73 K/uL (1.2-3.4); MEAN CELL VOLUME 91.2 fL (80-100); MEAN CORPUSCULAR HEMOGLOBIN 30.7 pg (25-34); MEAN CORPUSCULAR HGB CONC 33.6 g/dl (32-36); MEAN PLATELET VOLUME 10.3 fL (7.4-10.4); MONO ABS # 0.57 K/uL (0.11-0.59); NEUT % 61.9 %; NEUT ABS # 3.91 K/uL (1.4-6.5); PLATELET COUNT 229 K/uL (130-400); RED CELL DISTRIBUTION WIDTH CV 13.9 % (11.5-14.5); RED CELL DISTRIBUTION WIDTH SD 46.4 fL (36.4-46.3); WHITE BLOOD COUNT 6.31 K/uL (4.8-10.8)
[2017-12-26 10:53] LABS: PTT PATIENT 23.1 SECONDS (21.0-31.0)
[2017-12-26 12:26] LABS: CALCIUM 9.9 mg/dl (8.5-10.1); CREATININE 0.86 mg/dl (0.60-1.20); POTASSIUM 4.1 mmol/L (3.5-5.1)
--- NOTE | 2018-01-04 16:14 | HISTORY & PHYSICAL EXAMINATION ---
DATE OF ADMISSION: 01/05/2018 WORKING DIAGNOSIS: Burst fracture of the L1 vertebrae. She is being scheduled for surgery for kyphosis correcting, laminectomy and fusion - T11-12 and L2-L3, under general anesthetic. HISTORY OF PRESENT ILLNESS: She is a delightful lady. She suffered a burst fracture, which has gone on to worsening neurological deficit, weakness to her extremities. PAST MEDICAL HISTORY: Positive for high cholesterol. No angina, asthma, wheezing. No diabetes, thyroid issues. No blood disorders. Carcinoma negative. Negative for kidney issues. Does have acid reflux, hiatal hernia, moderate obesity. MEDICATIONS: Verapamil, calcium, vitamin D, and vitamin B, clonazepam, and pravastatin. SOCIAL HISTORY: Nonsmoker, non-ETOH user. SOCIAL HISTORY: She is , lives at home with spouse and family. REVIEW OF SYSTEMS: She denies any blurred vision, double vision, tinnitus or vertigo. She admits to pain and associated weakness. Denies any chest pain, palpitations. No asthma, wheezing, shortness of breath. No nausea, vomiting or incontinence of bowel or bladder function. Her major complaint is her musculoskeletal complaint of back pain, lower extremity weakness. PHYSICAL EXAMINATION: VITAL SIGNS: Blood pressure 130/80, pulse 80, respiratory rate 16. HEENT: Pupils react to light and accommodation. Ear, nose and throat clear. CARDIAC: Normal S1, S2, no S3. LUNGS: Clear to auscultation. No rales, rhonchi, wheezing. ABDOMEN: Soft, nontender. EXTREMITIES: Intact x4. She is weak in quadriceps, dorsiflexors and plantar flexors. Marked significant pain with flexion and extension of the spine. IMPRESSION: Delightful young lady with a burst fracture of the L1 vertebrae. PLAN: Includes kyphosis correction, laminectomy and fusion T11-12 and L2-L3, lumbar spine. [facility]
[~2018-01-05] VITALS: Ht 162.6 cm; Wt 73.4 kg
[2018-01-05] VITALS (7 sets, daily range): BP systolic 117–145; BP diastolic 63–98; PULSE 113–132; TEMP 36.4–36.9; O2SAT 92–97; Ht 162.6 cm; Wt 73.4 kg
[~2018-01-05 07:39] MED LIST changes: -ASPEC81 PO; +CEFAZOLIN 2000MG IV PUSH 15 ML IV SCH; -CPR500 PO; -DIPH25CA5 PO; -FRRG PO; -HYDR-5688 PO; +LACTATED RINGER'S 1000ML 1,000 ML IV SCH; +MULT-506 PO; -MULT-890 PO; -OPTIRAY 320 IV PRN; -OXYSR10 PO; +TRAM-10 PO; -VITAMIN B2 PO
[2018-01-05] MEDS ORDERED: ONDANSETRON INJ 2 MG/ML 2 ML VIAL IV PRN ×3 (09:30→15:00)
[2018-01-05] MEDS ORDERED: MEPERIDINE HCL 25 MG/ML CARP IV PRN ×2 (09:30→15:00)
[2018-01-05] MEDS ORDERED: EpHEDrine SULFATE INJ 50 MG/ML AMP IV PRN ×2 (09:30→15:00)
[2018-01-05] MEDS ORDERED: FENTANYL CITRATE INJ 50 MCG/1 ML 2 ML VIAL IV PRN (09:30)
[2018-01-05] MEDS ORDERED: LABETALOL HCL IV 5 MG/ML 20ML IV PRN ×2 (09:30→15:00)
[2018-01-05] MEDS ORDERED: ATROPINE SULFATE 0.1 MG/ML 5ML SYR IV PRN ×2 (09:30→15:00)
[2018-01-05] MEDS ORDERED: HYDROmorphone INJ 1 MG/ML SYR IV PRN ×2 (09:30→15:00)
[2018-01-05] MEDS ORDERED: GELATIN SPONGE SZ 100 ONE ×2 (09:51→12:08)
[2018-01-05] MEDS ORDERED: THROMBIN FOR SOLN 20000 UNIT KIT ONE (09:52)
[2018-01-05] MEDS ORDERED: BACITRACIN 50000 UNIT VIAL ONE (09:52)
[2018-01-05] MEDS ORDERED: VANCOMYCIN HCL 1000MG/20ML VIAL ONE (09:52)
[2018-01-05] MEDS ORDERED: MIDAZOLAM HCL 1 MG/ML 2ML VIAL ONE (09:53)
[2018-01-05] MEDS ORDERED: FENTANYL CITRATE INJ 50 MCG/1 ML 2 ML VIAL ONE ×2 (09:53→13:48)
[2018-01-05] MEDS ORDERED: BUPIVACAINE/EPINEPHRINE 0.5% MPF 1:200,000 30 ML VIAL ONE (09:55)
[2018-01-05] MEDS ORDERED: ROCURONIUM BROMIDE 10 MG/ML 5 ML VIAL IV ONE ×3 (09:56→11:46)
[2018-01-05] MEDS ORDERED: LIDOCAINE HCL 2% 2 ML VIAL (20MG/ML) ONE (09:56)
[2018-01-05] MEDS ORDERED: DEXAMETHASONE SOD INJ 4 MG/ML VIAL ONE (09:56)
[2018-01-05] MEDS ORDERED: ONDANSETRON INJ 2 MG/ML 2 ML VIAL ONE ×2 (09:56)
[2018-01-05] MEDS ORDERED: PROPOFOL IV EMULSION 10 MG/ML 20 ML VIAL IV ONE (09:56)
[2018-01-05] MEDS ORDERED: SODIUM CHLORIDE 0.9% INJ 10 ML VIAL ONE (12:01)
[2018-01-05] MEDS ORDERED: CEFAZOLIN SOD 1 GM VIAL ONE (13:24)
[2018-01-05] MEDS ORDERED: NEOSTIGMINE METHYLSULFATE 1 MG/ML 10ML VIAL ONE (13:43)
[2018-01-05] MEDS ORDERED: GLYCOPYRROLATE INJ 0.2 MG/ML VIAL ONE (13:43)
[2018-01-05] MEDS ORDERED: SODIUM CHLORIDE 0.9% 1000ML 1,000 ML IV SCH (14:12)
--- NOTE | 2018-01-05 14:14 | [facility] Post Operative Brief Note ---
Immediate Operative Summary Operative Date Jan 05, 2018. Pre-Operative Diagnosis 1. Burst Fracture of L1 vertebrae. 2. Kyphosis. 3. Spinal Stenosis Thoracic Spine level T11-T12;Lumbar Spine at level L2-L3. Post-Operative Diagnosis same as pre-operative Procedure(s) Performed Kyphosis Correction, Laminectomy and Fusion T11-T12, L2-L4, application of allograft, application of demineralized bone matrix Surgeon Dr. Daniel Case Audiovisual Librarian Surgeon(s) Jeremiah Smith PA-C Estimated Blood Loss 500mL Findings Consistent with Post-Op Diagnosis Specimens None, Per Surgeon Drains None Anesthesia Type General Complication(s) none Disposition Accompanied Pt To Recover: no
[2018-01-05] MEDS ORDERED: PROMETHAZINE HCL INJ 12.5 MG in SODIUM CHLORIDE 0.9% 50ML 50 ML IV PRN (14:15)
[2018-01-05] MEDS ORDERED: CEFAZOLIN IV 1,000 MG in DEXTROSE 5% 50ML 50 ML IV SCH (14:15)
[2018-01-05] MEDS ORDERED: METOCLOPRAMIDE HCL INJ 5 MG/ML 2 ML VIAL IV PRN (14:15)
[2018-01-05] MEDS ORDERED: CLONAZEPAM 0.5 MG TAB PO PRN (14:15)
[2018-01-05] MEDS ORDERED: RIZATRIPTAN BENZOATE 10 MG TAB PO PRN (14:15)
[2018-01-05] MEDS ORDERED: LORAZEPAM INJ 1 MG in SYRINGE 0 ML IV PRN (14:15)
[2018-01-05] MEDS ORDERED: LORAZEPAM 1 MG TAB PO PRN (14:15)
[2018-01-05] MEDS ORDERED: NALOXONE HCL 0.4 MG/1 ML VIAL/CARP IV PRN (14:15)
[2018-01-05] MEDS ORDERED: MAGNESIUM HYDROXIDE SUSP 30 ML UDC PO PRN (14:15)
[2018-01-05] MEDS ORDERED: ACETAMINOPHEN 325 MG TAB PO PRN (14:15)
[2018-01-05] MEDS ORDERED: DOCUSATE SODIUM 100 MG CAP PO PRN (14:15)
--- NOTE | 2018-01-05 14:19 | DIAGNOSTIC IMAGING REPORT ---
THORACIC AND LUMBAR SPINE, INTRAOPERATIVE FLUOROSCOPY HISTORY: Laminectomy and fusion from T11 through T12 and L2-L3.. FLUOROSCOPY TIME: 19 seconds. FINDINGS: Intraoperative fluoroscopy was provided for the lower thoracic and lumbar spine. 5 fluoroscopic spot images were obtained. There is again noted a severe compression deformity at L1. Posterior decompression and fusion from T11 through L4 with pedicle screws and rods. There are no pedicle screws within the severely compressed L1 vertebral body. No change in the retropulsed fragment at L1. The hardware appears intact. IMPRESSION: Fluoroscopy provided for a posterior decompression fusion from T11 through L4.. Electronically signed by: Karthikeyan Zeng M.D. 01/05/2018 2:18 PM Dictated Date/Time: 01/05/2018 2:17 PM
[2018-01-05] MEDS ORDERED: HYDROmorphone HCL 0.5MG/ML 50 ML CASSETTE ONE (14:25)
[2018-01-05] MEDS: FENTANYL CITRATE INJ 50 MCG/1 ML 2 ML VIAL IV PRN ×2 (14:51→15:01)
--- NOTE | 2018-01-05 15:23 | Anesthesiology Progress Note ---
Anesthesia Post Op Note Date & Time Jan 05, 2018 at 15:23 Vital Signs Pain Intensity: 6.0 Vital Signs Past 12 Hours Date Time Temp Pulse Resp B/P (MAP) Pulse Ox O2 Delivery O2 Flow Rate FiO2 01/05/18 14:57 110 19 94 01/05/18 14:56 146/79 01/05/18 14:52 107 22 01/05/18 14:52 108 22 96 01/05/18 14:51 143/67 01/05/18 14:47 105 21 01/05/18 14:47 105 21 96 01/05/18 14:45 153/77 01/05/18 14:42 106 21 01/05/18 14:42 106 21 96 01/05/18 14:40 134/72 01/05/18 14:37 103 15 96 01/05/18 14:37 103 15 01/05/18 14:36 129/67 01/05/18 14:33 99 16 01/05/18 14:33 99 16 98 01/05/18 14:31 144/89 01/05/18 14:28 105 16 95 01/05/18 14:28 105 16 01/05/18 14:26 130/91 01/05/18 14:23 108 24 01/05/18 14:23 107 24 95 01/05/18 14:21 151/83 01/05/18 14:19 149/93 01/05/18 14:18 13 01/05/18 14:18 13 01/05/18 14:18 36.5 109 20 149/93 100 Oxymask 15 01/05/18 08:42 36.8 113 16 136/98 92 Room Air Notes Mental Status: alert / awake / arousable, participated in evaluation Pt Amnestic to Procedure: Yes Nausea / Vomiting: adequately controlled Pain: adequately controlled Airway Patency, RR, SpO2: stable & adequate BP & HR: stable & adequate Hydration State: stable & adequate Anesthetic Complications: no major complications apparent
[2018-01-05] MEDS: HYDROmorphone HCL 0.5MG/ML 50 ML CASSETTE IV PRN ×2 (15:35→22:52)
--- NOTE | 2018-01-05 16:35 | Medical Consult ---
Consultation Date of Consultation: Jan 05, 2018. Attending Physician: Daniel Case DO Reason for Consultation: Medical management History of Present Illness Patient is a 77 y/o female, with PMHx of HLD, anxiety, migraines, and GERD, s/p kyphosis correction and laminectomy/fusion by Dr. Case on 01/05. Hospitalist team was consulted for medical management. Patient still lethargic since procedure but alert/oriented x3. Has not eaten since procedure. No N/V. Pain is currently 0/10. No BM/flatus postop. Patient denies any fever, chills, sweats, lightheadedness, dizziness, vision changes, CP, palpitations, edema, SOB, wheezing, cough, abdominal pain, nausea, vomiting, diarrhea, urinary symptoms, melena, numbness/tingling, weakness, muscle/joint pain, anxiety/depression, active bleeding, or new skin discoloration/changes. Past Medical/Surgical History Medical Problems: GERD HLD anxiety migraines cholecystectomy breast surgery hysterectomy total hip replacement Family History Cancer Social History Smoking Status: Never Smoker Alcohol Use: none Drug Use: none Marital Status: Housing Status: lives with significant other Occupation Status: retired Allergies Coded Allergies: CI Pigment Blue 63 (Verified Allergy, Unknown, listed on faxed sheet from doc office - see notes below, 12/26/17) pt denies allergies...pt not sure why Cymbalta was listed on sheet Duloxetine (Verified Allergy, Unknown, listed on faxed sheet from doc office - see notes below, 12/26/17) pt denies allergies...pt not sure why Cymbalta was listed on sheet Home Medications Reported Home Medications Medications Dose Route/Sig Max Daily Dose Days Date Category Ultram (Tramadol HCl) 50 Mg Tab 50 Mg PO UD PRN 12/26/17 Reported Multivitamin (Multivitamins) Tab 1 Tab PO QAM 12/26/17 Reported Stool Softener (Docusate Sodium) 100 Mg Cap 100 Mg PO DAILY PRN 02/21/17 Reported Calan Sr Ext Rel (Verapamil Hcl) 180 Mg Tab 180 Mg PO QAM 02/21/17 Reported Klonopin (Clonazepam) 0.5 Mg Tab 0.5 Mg PO DAILY PRN 02/21/17 Reported Vitamin D3 (Cholecalciferol) 1,000 Unit Tab 1 Tab PO QAM 02/21/17 Reported Paroxetine (Paroxetine HCl) 30 Mg Tab 2 Tab PO QAM 02/21/17 Reported Pantoprazole Sodium (Pantoprazole) 40 Mg Tab 40 Mg PO QAM 01/14/16 Reported Melatonin Unknown Strength Cap Unknown Dose PO HS 01/14/16 Reported Pravastatin Sodium (Pravastatin Sod) 40 Mg Tab 40 Mg PO HS 08/21/14 Reported Maxalt (Rizatriptan Benzoate) 10 Mg Tab 10 Mg PO PRN 08/21/14 Reported Calcium 500 + D (Calcium Carbonate-Vitamin D) 1 Tab Tab 1 Tab PO BID 08/21/14 Reported Current Inpatient Medications Current Inpatient Medications Medications (Trade) Dose Ordered Sig/Paul Route Start Time Stop Time Status Last Admin Dose Admin Cefazolin Sodium 15 ml @ 3.75 mls/ min PREOP IV 01/05/18 06:00 01/05/18 18:00 01/05/18 10:18 3.75 MLS/MIN Lactated Ringer's 1,000 ml @ 15 mls/hr Q24H IV 01/05/18 06:00 01/06/18 05:59 01/05/18 09:24 15 MLS/HR Diphenhydramine HCl (Benadryl Cap) 25 mg Q6H PRN PO 01/05/18 14:15 02/04/18 14:14 Magnesium Hydroxide (Milk Of Magnesia Susp) 30 ml DAILY PRN PO 01/05/18 14:15 02/04/18 14:14 Bisacodyl (Dulcolax Supp) 10 mg DAILY PRN IN 01/06/18 06:00 02/05/18 05:59 Bisacodyl (Dulcolax Tab) 5 mg DAILY PRN PO 01/06/18 06:00 02/05/18 05:59 Polyethylene (Miralax Powder Packet) 17 gm DAILY PO 01/06/18 09:00 02/05/18 08:59 Lorazepam 1 mg/ Syringe 0.5 ml @ 1 mls/min Q6H PRN IV 01/05/18 14:15 02/04/18 14:14 Lorazepam (Ativan Tab) 1 mg Q6H PRN PO 01/05/18 14:15 02/04/18 14:14 Metoclopramide HCl (Reglan Inj) 10 mg Q6H PRN IV 01/05/18 14:15 02/04/18 14:14 Ondansetron HCl (Zofran Inj) 4 mg Q6H PRN IV 01/05/18 14:15 02/04/18 14:14 Promethazine HCl 12.5 mg/Sodium Chloride 50.5 ml @ 202 mls/hr Q6H PRN IV 01/05/18 14:15 02/04/18 14:14 Hydromorphone HCl (Dilaudid Inj) 1.5 mg Q3H PRN IV 01/06/18 08:00 01/20/18 07:59 Oxycodone/ Acetaminophen (Percocet 5-325mg Tab) 2 tab Q4H PRN PO 01/06/18 08:00 01/20/18 07:59 Hydromorphone HCl (Dilaudid Inj) 1 mg Q3H PRN IV 01/06/18 08:00 01/20/18 07:59 Oxycodone/ Acetaminophen (Percocet 5-325mg Tab) 1 tab Q4H PRN PO 01/06/18 08:00 01/20/18 07:59 Miscellaneous Information (Discontinue RE EXAMINER) 1 ea TODAY@0800 ONCE N/A 01/06/18 08:00 01/06/18 08:01 Acetaminophen (Tylenol Tab) 650 mg Q6H PRN PO 01/05/18 14:15 02/04/18 14:14 Dexamethasone Sodium Phosphate 10 mg/Syringe 2.5 ml @ 1 mls/min Q8H IV 01/05/18 16:00 01/07/18 00:03 Sodium Chloride 1,000 ml @ 80 mls/hr [id number] IV 01/05/18 14:12 02/04/18 14:11 Clonazepam (Klonopin Tab) 0.5 mg DAILY PRN PO 01/05/18 14:15 02/04/18 14:14 Docusate Sodium (coLACE CAP) 100 mg DAILY PRN PO 01/05/18 14:15 02/04/18 14:14 Multivitamins (Multivitamin Tab) 1 tab QAM PO 01/06/18 09:00 02/05/18 08:59 Pantoprazole Sodium (Protonix Tab) 40 mg QAM PO 01/06/18 09:00 02/05/18 08:59 Pravastatin Sodium (Pravachol Tab) 40 mg HS PO 01/05/18 21:00 02/04/18 20:59 Rizatriptan Benzoate (Maxalt Tab) 10 mg UD PRN PO 01/05/18 14:15 02/04/18 14:14 Verapamil HCl (Calan-Sr Tab) 180 mg QAM PO 01/06/18 09:00 02/05/18 08:59 Calcium/Vitamin D (Caltrate Plus Tab) 1 tab BID PO 01/05/18 21:00 02/04/18 20:59 Paroxetine HCl (pAXil) 60 mg QAM PO 01/06/18 09:00 02/05/18 08:59 Naloxone HCl (Narcan Inj) 0.1 mg Q5M PRN IV 01/05/18 14:15 01/06/18 08:00 Hydromorphone HCl (Dilaudid Osha Inspector) 0.25 mg PRN PRN IV 01/05/18 14:15 01/06/18 08:00 01/05/18 15:35 0.25 MG Sodium Chloride 1,000 ml @ 15 mls/hr Q24H IV 01/05/18 14:12 01/06/18 08:00 Fentanyl Citrate (Fentanyl Inj) 50 mcg Q5M PRN IV 01/05/18 15:00 01/05/18 18:00 01/05/18 15:01 50 MCG Hydromorphone HCl (Dilaudid Inj) 0.5 mg Q5M PRN IV 01/05/18 15:00 01/05/18 18:00 Meperidine HCl (Demerol Inj) 25 mg Q5M PRN IV 01/05/18 15:00 01/05/18 18:00 Ondansetron HCl (Zofran Inj) 4 mg ONE PRN IV 01/05/18 15:00 01/05/18 18:00 Labetalol HCl (Normodyne IV) 5 mg Q5M PRN IV 01/05/18 15:00 01/05/18 18:00 Ephedrine Sulfate (EpHEDrine SULFATE INJ) 5 mg Q5M PRN IV 01/05/18 15:00 01/05/18 18:00 Atropine Sulfate (Atropine Sulfate 0.1mg/ml Inj) 0.5 mg Q1M PRN IV 01/05/18 15:00 01/05/18 18:00 Cefazolin Sodium 1000 mg/Syringe 7.5 ml @ 2.5 mls/min Q8H IV 01/05/18 18:00 01/06/18 10:02 Physical Exam Date Time Temp Pulse Resp B/P (MAP) Pulse Ox O2 Delivery O2 Flow Rate FiO2 01/05/18 16:00 36.7 122 16 123/67 (85) 92 Nasal Cannula 4.0 01/05/18 15:30 93 Nasal Cannula 4.0 01/05/18 15:30 36.4 114 16 145/78 (100) 93 Nasal Cannula 4.0 01/05/18 15:20 126/68 01/05/18 15:17 106 18 92 01/05/18 15:17 107 18 01/05/18 15:15 127/68 01/05/18 15:12 107 12 01/05/18 15:12 106 12 92 01/05/18 15:10 132/75 01/05/18 15:07 113 17 94 01/05/18 15:07 112 17 01/05/18 15:06 132/72 01/05/18 15:02 102 23 94 01/05/18 15:02 102 23 01/05/18 15:01 149/72 01/05/18 14:57 111 19 01/05/18 14:57 110 19 94 01/05/18 14:56 146/79 01/05/18 14:52 107 22 01/05/18 14:52 108 22 96 01/05/18 14:51 143/67 01/05/18 14:47 105 21 01/05/18 14:47 105 21 96 01/05/18 14:45 153/77 01/05/18 14:42 106 21 01/05/18 14:42 106 21 96 01/05/18 14:40 134/72 01/05/18 14:37 103 15 96 01/05/18 14:37 103 15 01/05/18 14:36 129/67 01/05/18 14:33 99 16 01/05/18 14:33 99 16 98 01/05/18 14:31 144/89 01/05/18 14:28 105 16 95 3/8/18 14:28 105 16 01/05/18 14:26 130/91 01/05/18 14:23 108 24 01/05/18 14:23 107 24 95 01/05/18 14:21 151/83 01/05/18 14:19 149/93 01/05/18 14:18 13 01/05/18 14:18 13 01/05/18 14:18 36.5 109 20 149/93 100 Oxymask 15 01/05/18 08:42 36.8 113 16 136/98 92 Room Air General Appearance: no apparent distress, + pertinent finding (O2 NC) Head: normocephalic, atraumatic Eyes: normal inspection, PERRL ENT: hearing grossly normal Neck: supple Respiratory/Chest: lungs clear, no respiratory distress, no accessory muscle use Cardiovascular: regular rate, rhythm Abdomen/GI: normal bowel sounds, non tender, soft Back: normal inspection, + pertinent finding (hemovac with bloody output ) Extremities/Musculoskelatal: no calf tenderness, no pedal edema Neurologic/Psych: alert, normal mood/affect, oriented x 3 Skin: normal color, warm/dry, no rash Laboratory Results Last 24 Hours Test 01/05/18 14:12 Assessment & Plan Patient is a 77 y/o female, with PMHx of HLD, anxiety, migraines, and GERD, s/p kyphosis correction and laminectomy/fusion by Dr. Case on 01/05. s/p kyphosis correction and laminectomy/fusion by Dr. Case on 01/05: - Surgical management, pain management, PT/OT, and DVT prophylaxis as per primary team - Encourage incentive spirometer - Bowel regimen ordered - Follow postop CBC and PRP HLD: Continue Pravastatin Anxiety: Continue Paxil and Klonopin Migraines: Continue Verapamil GERD: Continue Protonix DVT prophylaxis: As per surgical team Code status: LEVEL I, FULL Dispo: As per primary team Resident Physician Supervision Note: I was present with JOHNNIE Chun during the history and exam. I discussed the case with the resident and agree with the findings and plan as documented in the note. Any exceptions or clarifications are listed here: 77 y/o F HLD, anxiety, migraines, GERD, s/p kyphosis, correction and laminectomy /fusion - medical service is asked to consult post-op She is sitting up and eating and feels quite well - she is having some minor pain at the surgical site OE AA x 3 S1,2 R CTAB NT, ND No CCE P: None of her current medications would be contraindicated post-op Will cont Pravastatin, Paxil and Klonopin She can cont Verapamil - would avoid Maxalt for now PT/OT when possible per ortho Documented By: Jus Bobo
[2018-01-05] MEDS: SODIUM CHLORIDE 0.9% 1000ML 1,000 ML IV SCH (16:40)
[2018-01-05] MEDS: DEXAMETHASONE INJ 10 MG in SYRINGE 0 ML IV SCH ×2 (16:42→23:31)
[2018-01-05 17:06] LABS: HEMATOCRIT 41.7 % (37-47)
[2018-01-05] MEDS: CEFAZOLIN IV 1,000 MG in SYRINGE 0 ML IV SCH (18:03)
--- NOTE | 2018-01-05 18:54 | OPERATIVE REPORT ---
DATE OF OPERATION: 01/05/2018 PREOPERATIVE DIAGNOSIS: Burst fracture of the L1 vertebrae. POSTOPERATIVE DIAGNOSIS: Same. PROCEDURES: Included; 1. A kyphosis correction of the thoracolumbar junction, instrumentation and reduction of the vertebrae. 2. Pedicle screw instrumentation T12 and T11 plus L2 and L3 and L4. 3. Posterolateral fusion with allograft and autograft from T11 down to L4. 4. Decompression of T12, L1 and L2. COMPLICATIONS: Zero. BLOOD LOSS: Approximately 400 to 500 mL. SURGEON: Daniel Case DO GRAIN I FARMWORKER: Jeremiah Smith PA-C DRAIN: 1 drain. COUNT: Sponge and needle count correct. DESCRIPTION OF PROCEDURE: The patient was taken to the operating room. A general intubated anesthetic provided to patient. The patient was placed prone, prepped and draped sterile. We made a skin incision, fascial incision and came down on the kyphosis deformity. We carefully and meticulously decompressed the neural elements from L1, L2 and T12. After we safely decompressed the neural elements, proceeded with the kyphosis correction. We were able to safely get pedicle screws into the vertebrae T11-T12 along with L2, L3, L4 on both sides using C-arm guidance and anatomic landmarks. I felt the actual fixation was quite stable. We then also cross-linked the construct. We irrigated thoroughly. We debrided any soft tissues. We then bone graft a combination of allograft-autograft out over the transverse process all the way from T11 down to L5. Several level fusion was done bilaterally. We closed over vancomycin powder and a Hemovac drain with 1 Vicryl suture, 2-0 in the subcuticular layer, staple gun on the skin, sterile dressing applied. The patient returned to recovery room satisfactory and stable. No apparent interoperative complications. I attest to the content of the Intraoperative Record and any orders documented therein. Any exception s are noted below.
[2018-01-05] MEDS ORDERED: PRAVASTATIN SOD 40 MG TAB PO SCH (21:00)
[2018-01-05] MEDS ORDERED: CALCIUM 600MG + VIT D 400 IU TAB PO SCH (21:00)
[2018-01-06] MEDS: CEFAZOLIN IV 1,000 MG in SYRINGE 0 ML IV SCH (02:16)
[2018-01-06] MEDS: SODIUM CHLORIDE 0.9% 1000ML 1,000 ML IV SCH (02:16)
[2018-01-06 02:19] VITALS: PULSE 112; O2SAT 94
[2018-01-06 03:13] VITALS: BP 108/82; PULSE 110; TEMP 36.6; O2SAT 94
[2018-01-06] MEDS ORDERED: BISACODYL 5 MG TABEC PO PRN (06:00)
[2018-01-06] MEDS ORDERED: BISACODYL 10 MG SUPP PR PRN (06:00)
[2018-01-06 06:26] VITALS: BP 171/91; PULSE 127; O2SAT 97
[2018-01-06 06:46] LABS: HEMATOCRIT 36.7 % (37-47); HEMOGLOBIN 12.2 g/dL (12.0-16.0); MEAN CELL VOLUME 93.1 fL (80-100); MEAN CORPUSCULAR HGB CONC 33.2 g/dl (32-36); MEAN PLATELET VOLUME 10.3 fL (7.4-10.4); PLATELET COUNT 273 K/uL (130-400); RED CELL DISTRIBUTION WIDTH CV 14.2 % (11.5-14.5); RED CELL DISTRIBUTION WIDTH SD 48.1 fL (36.4-46.3); WHITE BLOOD COUNT 14.68 K/uL (4.8-10.8)
[2018-01-06] MEDS: HYDROmorphone HCL 0.5MG/ML 50 ML CASSETTE IV PRN (06:56)
[2018-01-06 07:23] LABS: BLOOD UREA NITROGEN 20 mg/dl (7-18); CALCIUM 8.1 mg/dl (8.5-10.1); CARBON DIOXIDE 26 mmol/L (21-32); CREATININE 0.89 mg/dl (0.60-1.20); GLUCOSE 156 mg/dl (70-99); POTASSIUM 4.5 mmol/L (3.5-5.1); SODIUM 140 mmol/L (136-145)
[2018-01-06] MEDS ORDERED: TRANEXAMIC ACID INJ 1,000 MG in SODIUM CHLORIDE 0.9% 100ML 100 ML IV STA (07:54)
[2018-01-06] MEDS ORDERED: HYDROmorphone INJ 1 MG/ML SYR IV PRN ×2 (08:00)
[2018-01-06] MEDS ORDERED: DC PCA ONE (08:00)
[2018-01-06] MEDS ORDERED: OXYCODONE/ACETAMINOPHEN 5-325 TAB PO PRN ×2 (08:00)
[2018-01-06] MEDS ORDERED: VASOPRESSIN INJ 50 UNITS in SODIUM CHLORIDE 0.9% 500ML 500 ML IV SCH (08:30)
[2018-01-06] MEDS ORDERED: NOREPINEPHRINE BIT INJ 8 MG in DEXTROSE 5% 500ML 500 ML IV PRN (08:30)
[2018-01-06] MEDS ORDERED: SODIUM BICARB 8.4% INJ 50 MEQ/50 ML SYR IV ONE (08:39)
[2018-01-06] MEDS ORDERED: SODIUM CHLORIDE 0.9% 500 ML BAG IV ONE (08:39)
[2018-01-06] MEDS ORDERED: NALOXONE HCL INJ 0.4 MG/1 ML VIAL/CARP IV ONE (08:39)
[2018-01-06] MEDS ORDERED: ATROPINE SULFATE 0.1 MG/ML 10 ML SYR IV ONE ×2 (08:39)
[2018-01-06] MEDS ORDERED: VASOPRESSIN 20 UNIT/ML VIAL IV ONE (08:39)
[2018-01-06] MEDS ORDERED: SODIUM CHLORIDE 0.9% 10ML FLUSH IV ONE (08:39)
[2018-01-06 08:57] LABS: ISTAT POTASSIUM 4.6 mEq/L (3.3-5.0); ISTAT SODIUM 144 mEq/L (135-144)
[2018-01-06] MEDS ORDERED: POLYETHYLENE (MIRALAX) 17 GM PACK PO SCH (09:00)
[2018-01-06] MEDS ORDERED: VERAPAMIL HCL 180 MG TABCR PO SCH (09:00)
[2018-01-06] MEDS ORDERED: MULTIVITAMIN TAB PO SCH (09:00)
[2018-01-06] MEDS ORDERED: PAROXETINE 30 MG TAB PO SCH (09:00)
[2018-01-06] MEDS ORDERED: PANTOprazole SOD 40 MG TAB PO SCH (09:00)
--- NOTE | 2018-01-06 11:51 | Death Summary ---
Summary of Admission Date Jan 05, 2018 at 10:00 (Lissy Villagomez MD) Date & Time of Jan 06, 2018. 8:40 (Lissy Villagomez MD) Cause of Acute Myocardial Infarction (Lissy Villagomez MD) Hospital Course The patient underwent elective back surgery on 01/05/18. Please refer to Dr Case 's procedure note for details on this. Medicine was consulted for medical management. Around 7AM, Medicine was called that the patient was having L sided chest pain radiating to the arm and was tachycardic. We ordered bloodwork, EKG, CXR, and Troponin levels. I saw the patient around 7am and history and exam were unremarkable, and she confirmed her code status as full resuscitation at that time. I was called with the EKG results and a Code Blue was also called overhead. The patient had apparently lost a pulse and was very shaky. Please refer to documentation of the code blue for events of that. Overall she was given multiple rounds of medications and transfused blood. Her arrived and the decision was made by the Attending physician to cease heroic efforts. The patient passed comfortably and was pronounced by Dr. Walton. (Lissy Villagomez MD) Resident Physician Supervision Note: I interviewed and examined the patient. Discussed with Dr. Villagomez and agree with findings and plan as documented in the note. Any exceptions or clarifications are listed here: None We were called urgently to CODE BLUE in this patient's room. We spent an hour and 35 minutes at the bedside. I personally ran the code while the clay mine cutting machine operator before procedures on this patient despite multiple attempts and multiple uses of pressor agents we are unable to sustain a pulse I personally spoke to the attending, I updated the family multiple times and ultimately brought the family back to the patient's bedside prior to being able to pronounce her I pronounced patient at 840 hours. Documented By: Taz Walton (Taz Walton M.D.) Copy To Jimbo Lerner M.D. Resident Tracking Resident Involvement: Resident Care Provided Care Provided: Adult [facility] Medicine (Lissy Villagomez MD)
--- NOTE | 2018-01-06 18:50 | Procedure Note ---
Procedure Note Procedure Date Jan 06, 2018. Procedure Description Procedure Name: Endotracheal intubation Procedure time out: patient ID confirmed Consent obtained: emergent consent implied Performed by: attending Indications: therapeutic Description: Patient supine, undergoing CPR Sedation not required Using MAC4 blade, I intubated the patient with 7.5 ET tube. Intubation was straight forward. No secretions observed, no signs of aspiration ET tube position confirmed by auscultation and positive color capnometry change. Et tube secured with aguilar Complications: none Patient tolerated procedure: well
--- NOTE | 2018-01-06 18:52 | Procedure Note ---
Procedure Note Procedure Date Jan 06, 2018. Central Line Procedure time out: patient ID confirmed Consent obtained: emergent consent implied Performed by: attending Indications: poor venous access, central drug admin. Prep: chlorhexadine prep, sterile drape Anesthesia: other (No anesthesia delivered) Central line lumen: triple Central line location: femoral (R) Additional details: percutaneous placement, Selinger technique used, line sutured, good blood return Complications: none
--- NOTE | 2018-01-06 18:58 | Progress Note ---
Progress Note Date of Service Jan 06, 2018. Progress Note I responded to overhead Code Blue announcement. The patient has complained of chest pain prior to that. EKG and blood work were sent, but very shortly she went into cardiac arrest. ACLS protocol has been initiated. She received multiple rounds of epinephrine. Also received Atropine and Vasopressin. Given drop in H/H, she was emergently transfused 3 units PRBC. She intermittently regained the pulse, very faint, we could never measure a blood pressure, and she would quickly go back into PEA. Bedside echo indicated extremely poor EF, with almost akinesis of the LV. After prolonged resuscitation, unfortunately out efforts appeared to be futile. The patient was allowed to eventually peacefully in the presence of her
== END 2018-01-06 08:40 | disposition expired | DRG 459 ==
LOC: C.ACU 07:39 → C.3E 10:00 → UNDOADMIN 10:00 → ENRESERV 15:07
PROVIDERS: ADMIT Orthopaedic Surgery Orthopaedic Surgery of the Spine; ATTEND Orthopaedic Surgery Orthopaedic Surgery of the Spine
PROC: 0RG6071 Fusion of Thoracic Vertebral Joint with Autologous Tissue Substitute, Posterior Approach, Posterior Column, Open Approach (ICD-10-PCS; principal; 2018-01-05 09:30)
PROC: 0SG1071 Fusion of 2 or more Lumbar Vertebral Joints with Autologous Tissue Substitute, Posterior Approach, Posterior Column, Open Approach (ICD-10-PCS; principal; 2018-01-05 09:30)
PROC: 0BH17EZ Insertion of Endotracheal Airway into Trachea, Via Natural or Artificial Opening (ICD-10-PCS; 2018-01-06)
PROC: 06HM33Z Insertion of Infusion Device into Right Femoral Vein, Percutaneous Approach (ICD-10-PCS; 2018-01-06)
DX: M48.061 Spinal stenosis, lumbar region without neurogenic claudication (principal); I21.9 Acute myocardial infarction, unspecified; S32.019A Unspecified fracture of first lumbar vertebra, initial encounter for closed fracture; M48.04 Spinal stenosis, thoracic region; M40.209 Unspecified kyphosis, site unspecified; E78.00 Pure hypercholesterolemia, unspecified; K21.9 Gastro-esophageal reflux disease without esophagitis; E66.9 Obesity, unspecified; F41.9 Anxiety disorder, unspecified; Z79.899 Other long term (current) drug therapy; X58.XXXA Exposure to other specified factors, initial encounter; Z68.27 Body mass index [BMI] 27.0-27.9, adult